=== PATIENT | male | born 1955 | race Caucasian/White ===

== ENCOUNTER 2016-10-09 10:50 | Emergency (ER) | payer MEDICARE ==
[~2016-10-09] VITALS: Ht 185.4 cm; Wt 75.0 kg
[2016-10-09 10:52] VITALS: BP 177/81; PULSE 88; RESP 24; TEMP 97.7; O2SAT 100
[2016-10-09] MEDS ORDERED: SERO200T PO (11:08)
[2016-10-09] MEDS ORDERED: TRAZ300T2 PO (11:08)
--- NOTE | 2016-10-09 11:29 | PD ---
HPI Chief Complaint: Medication Refill Request Time Seen by Provider: 11:24 Travel History International Travel<30 days: No Contact w/Intl Traveler<30days: No Traveled to known affect area: No History of Present Illness HPI 61-year-old male presents to the emergency department requesting refill on Depakote for his bipolar disorder. He has not taken it for the last 4 days. Reports being discharged last Sunday from an inpatient psychiatric facility in [place] and traveled down here on to the due to the area. He has been without medications and needs a refill. Denies suicidal or homicidal ideations. Denies visual or auditory hallucinations. Denies IV drug use. Is requesting to be admitted into a psychiatric facility to help him because he is feeling depressed and has decreased appetite and does not want to eat. He has no emergent medical complaints at this time. He denies fever, chills, nausea, vomiting. Denies chest pain, shortness of breath, abdominal pain, change in urine or stool. Denies other significant past medical history. Allergies to codeine and Mellaril. No other modifying factors or associated signs and symptoms. History Past Medical Histgory Tetanus Vaccination: < 5 Years Social History Alcohol Use: No Tobacco Use: Yes Allergies-Medications (Allergen,Severity, Reaction): Coded Allergies: Codeine (Verified Allergy, Severe, Nausea/Vomiting, 10/09/16) Mellaril (Verified Allergy, Severe, Nausea/Vomiting, 10/09/16) Reported Meds & Prescriptions Reported Meds & Active Scripts Active Reported Seroquel (Quetiapine Fumarate) 200 Mg Tab 200 Mg PO HS Trazodone (Trazodone HCl) 300 Mg Tab 300 Mg PO HS Review of Systems Except as stated in HPI: all other systems reviewed are Neg Physical Exam Narrative GENERAL: Well-nourished, well-developed male patient, in no acute distress; disheveled SKIN: Warm and dry. HEAD: Atraumatic. Normocephalic. EYES: Pupils equal and round. ENT: Mucosa pink and moist. NECK: Supple. Trachea midline. CARDIOVASCULAR: Regular rate and rhythm. No murmur appreciated. RESPIRATORY: No accessory muscle use. Clear to auscultation. Breath sounds equal bilaterally. GASTROINTESTINAL: Abdomen soft, non-tender, nondistended. Hepatic and splenic margins not palpable. Bowel sounds are active 4 quadrants. MUSCULOSKELETAL: No obvious deformities. No clubbing. No cyanosis. No edema. NEUROLOGICAL: Awake and alert. Oriented 3. No obvious cranial nerve deficits. Motor grossly within normal limits. Normal speech. Moves all extremities. 5/5 strength to all extremities. PSYCHIATRIC: No delusional thought processes. No hallucinations. Data Data Last Documented VS Vital Signs Date Time Temp Pulse Resp B/P Pulse Ox O2 Delivery O2 Flow Rate FiO2 10/09/16 10:52 97.7 88 24 177/81 100 Room Air MDM Medical Screen Exam Complete: Yes Emergency Medical Condition: No Differential Diagnosis Medication refill, medical clearance, psych evaluation Narrative Course 61-year-old male requesting medication refill on Depakote for bipolar disorder. Patient denies suicidal or homicidal ideations. Community resources provided for outpatient follow-up. Vital signs are stable and the patient is stable for outpatient follow-up and treatment. The patient has no urgent or emergent medical complaints. There is no emergent or urgent medical need at this time. I instructed the patient to follow up with their primary care provider. A medical screening exam was performed: At the time of evaluation the presenting medical condition was determined not to be of an emergent nature. The patient was given the option of receiving additional care, but declined. Patient was given options for additional community resources from which to obtain care. The Patient Has Been advised to seek medical attention for their presenting complaint. The patient has been advised to return to the ER at any time if an emergent condition develops. Primary Impression: Encounter for medical screening examination Condition: Stable Elinor Rea Oct 09, 2016 11:29
== END 2016-10-09 11:44 | disposition left against medical advice (07) ==
LOC: NEPB 10:50
DX: F31.9 Bipolar disorder, unspecified (principal); F32.9 Major depressive disorder, single episode, unspecified; Z72.0 Tobacco use
CPT/HCPCS: 99281

== ENCOUNTER 2016-10-22 18:57 | Emergency (ER) | payer MEDICARE ==
[~2016-10-22] VITALS: Ht 185.4 cm; Wt 72.5 kg
[~2016-10-22 18:57] MED LIST: SERO200T PO; TRAZ300T2 PO
[2016-10-22 19:30] VITALS: BP 142/72; PULSE 54; RESP 16; TEMP 97.9; O2SAT 98
[2016-10-22] MEDS ORDERED: SODIUM CHLOR 0.9% 1000 ML INJ 1,000 ML IV SCH (19:39)
[2016-10-22] MEDS ORDERED: DIVA250T PO (19:40)
[2016-10-22] MEDS ORDERED: AMLO2.5T PO (19:40)
[2016-10-22] MEDS ORDERED: POTA10CA PO (19:40)
[2016-10-22] MEDS ORDERED: CHLO25TA2 PO (19:40)
[2016-10-22] MEDS ORDERED: ZOFR4TAB3 SL (19:40)
[2016-10-22] MEDS ORDERED: VENL75CA44 PO (19:40)
[2016-10-22] MEDS ORDERED: ONDANSETRON HCL 4 MG/2 ML VIAL IV PUSH ONE (19:45)
[2016-10-22 19:59] LABS: AUTOMATED NEUTROPHIL # 6.1 TH/MM3 (1.8-7.7); BASOPHIL # 0.1 TH/MM3 (0-0.2); BASOPHIL % 0.8 % (0.0-2.0); EOSINOPHIL # 0.1 TH/MM3 (0-0.4); EOSINOPHIL % 1.1 % (0.0-4.0); HEMATOCRIT 43.5 % (39.0-51.0); HEMO FLAGS DIFF FINAL; LYMPH % 28.5 % (9.0-44.0); LYMPHOCYTE # 2.8 TH/MM3 (1.0-4.8); MEAN CELL VOLUME 81.6 FL (80.0-100.0); MEAN CORPUSCULAR HEMOGLOBIN 27.6 PG (27.0-34.0); MEAN CORPUSCULAR HGB CONC 33.8 % (32.0-36.0); MONO % 6.8 % (0.0-8.0); NEUT % 62.8 % (16.0-70.0); PLATELET COUNT 197 TH/MM3 (150-450); RED BLOOD COUNT 5.34 MIL/MM3 (4.50-5.90); RED CELL DISTRIBUTION WIDTH 13.7 % (11.6-17.2); WHITE BLOOD COUNT 9.7 TH/MM3 (4.0-11.0)
[2016-10-22 20:11] LABS: APTT (PATIENT) 25.9 SEC (24.3-30.1)
--- NOTE | 2016-10-22 20:16 | PD ---
HPI Chief Complaint: GI Complaint Time Seen by Provider: 20:11 Travel History International Travel<30 days: No Contact w/Intl Traveler<30days: No Traveled to known affect area: No History of Present Illness HPI 61-year-old male that presents to the ED via ambulance for evaluation of nausea and vomiting. Per patient he feels weak and feels nauseous. Patient states that he was recently seen at [facility] and released today for evaluation of the same. Patient was given Zofran and a prescription for it but apparently he did not fill it. She states that he's been feeling very nauseous secondary to keep anything down. He states that he had some abdominal cramping in the beginning. He does have a history of psychiatric illness. Patient has been here once before earlier this month and per the previous provider patient came here for evaluation of psychiatric evaluation as well as medication refill and admission to psychiatric facility. Patient does have a history of psychiatric illness including bipolar disorder and takes Depakote. Per patient he recently put back on medications for this. He denies any chest pain or shortness of breath. He states that she's been at that hospital multiple times. Unclear as to the reason why she was sent here but per patient he was told by a "social services director "at the hospital but he needed to come here. He has an allergy to codeine and Mellaril. PFSH Past Medical History Bipolar Disorder: Yes Diminished Hearing: No Past Surgical History Surgical History: No Previous Surgery Social History Alcohol Use: No Tobacco Use: No Substance Use: No Allergies-Medications (Allergen,Severity, Reaction): Coded Allergies: Codeine (Verified Allergy, Severe, Nausea/Vomiting, 10/22/16) Mellaril (Verified Allergy, Severe, Nausea/Vomiting, 10/22/16) Reported Meds & Prescriptions Reported Meds & Active Scripts Active Phenergan (Promethazine HCl) 25 Mg Tab 25 Mg PO Q6H PRN Reported Chlorthalidone 25 Mg Tab 25 Mg PO DAILY Venlafaxine ER 24 HR (Venlafaxine HCl) 75 Mg Cap 75 Mg PO DAILY Amlodipine (Amlodipine Besylate) 2.5 Mg Tab 2.5 Mg PO DAILY Potassium Chloride ER (Potassium Chloride) 10 Meq Cap 10 Meq PO DAILY Zofran Odt (Ondansetron Odt) 4 Mg Tab 4 Mg SL Q6HR PRN Divalproex DR (Divalproex Sodium) 250 Mg Tabdr 500 Mg PO HS Seroquel (Quetiapine Fumarate) 200 Mg Tab 200 Mg PO HS Trazodone (Trazodone HCl) 300 Mg Tab 300 Mg PO HS Review of Systems Except as stated in HPI: all other systems reviewed are Neg Physical Exam Narrative GENERAL: Very anorexic SKIN: Warm and dry. HEAD: Atraumatic. Normocephalic. EYES: Pupils equal and round 4 mm reactive to light and accommodation. No scleral icterus. No injection or drainage. ENT: No nasal bleeding or discharge. Mucous membranes pink and moist. Tongue is midline. no Uvula deviation. NECK: Trachea midline. No JVD. CARDIOVASCULAR: Regular rate and rhythm. No murmurs, S3, S4. RESPIRATORY: No accessory muscle use. Clear to auscultation. Breath sounds equal bilaterally. GASTROINTESTINAL: Abdomen soft, non-tender, nondistended. Hepatic and splenic margins not palpable. MUSCULOSKELETAL: Extremities without clubbing, cyanosis, or edema. No obvious deformities. Full range of motion of the upper and lower extremities bilaterally. 2+ pulses bilaterally. NEUROLOGICAL: Awake and alert. No obvious cranial nerve deficits. Motor grossly within normal limits. Five out of 5 muscle strength in the arms and legs. Normal speech. PSYCHIATRIC: Appropriate mood and affect; insight and judgment normal. Data Data Last Documented VS Vital Signs Date Time Temp Pulse Resp B/P Pulse Ox O2 Delivery O2 Flow Rate FiO2 10/22/16 19:30 97.9 54 16 142/72 98 Room Air Orders Electrocardiogram (10/22/16 19:39) Complete Blood Count With Diff (10/22/16 19:39) Comprehensive Metabolic Panel (10/22/16 19:39) Troponin I (10/22/16 19:39) Prothrombin Time / Inr (Pt) (10/22/16 19:39) Act Partial Throm Time (Ptt) (10/22/16 19:39) Lipase (10/22/16 19:39) Urinalysis - C+S If Indicated (10/22/16 19:39) Alcohol (Ethanol) (10/22/16 19:39) Thyroid Stimulating Hormone (10/22/16 19:39) Chest, Single Ap (10/22/16 19:39) Iv Access Insert/Monitor (10/22/16 19:39) Ecg Monitoring (10/22/16 19:39) Oximetry (10/22/16 19:39) Ondansetron Inj (Zofran Inj) (10/22/16 19:45) Sodium Chlor 0.9% 1000 Ml Inj (Ns 1000 M (10/22/16 19:39) Valproic Acid (Depakene) (10/22/16 19:41) Promethazine Inj (Phenergan Inj) (10/22/16 21:00) Labs Laboratory Tests Test 10/22/16 19:45 White Blood Count 9.7 TH/MM3 Red Blood Count 5.34 MIL/MM3 Hemoglobin 14.7 GM/DL Hematocrit 43.5 % Mean Corpuscular Volume 81.6 FL Mean Corpuscular Hemoglobin 27.6 PG Mean Corpuscular Hemoglobin 33.8 % Concent Red Cell Distribution Width 13.7 % Platelet Count 197 TH/MM3 Mean Platelet Volume 9.1 FL Neutrophils (%) (Auto) 62.8 % Lymphocytes (%) (Auto) 28.5 % Monocytes (%) (Auto) 6.8 % Eosinophils (%) (Auto) 1.1 % Basophils (%) (Auto) 0.8 % Neutrophils # (Auto) 6.1 TH/MM3 Lymphocytes # (Auto) 2.8 TH/MM3 Monocytes # (Auto) 0.7 TH/MM3 Eosinophils # (Auto) 0.1 TH/MM3 Basophils # (Auto) 0.1 TH/MM3 CBC Comment DIFF FINAL Differential Comment Prothrombin Time 11.0 SEC Prothromb Time International 1.0 RATIO Ratio Activated Partial 25.9 SEC Thromboplast Time Sodium Level 138 MEQ/L Potassium Level 4.1 MEQ/L Chloride Level 103 MEQ/L Carbon Dioxide Level 24.0 MEQ/L Anion Gap 11 MEQ/L Blood Urea Nitrogen 17 MG/DL Creatinine 1.67 MG/DL Estimat Glomerular Filtration 42 ML/MIN Rate Random Glucose 147 MG/DL Calcium Level 9.5 MG/DL Total Bilirubin 0.5 MG/DL Aspartate Amino Transf 35 U/L (AST/SGOT) Alanine Aminotransferase 19 U/L (ALT/SGPT) Alkaline Phosphatase 76 U/L Troponin I LESS THAN 0.02 NG/ML Total Protein 7.9 GM/DL Albumin 3.9 GM/DL Lipase 133 U/L Thyroid Stimulating Hormone 0.955 uIU/ML 3rd Gen Valproic Acid (Depakene) Level 40 MCG/ML Ethyl Alcohol Level LESS THAN 3 MG/DL MDM Medical Decision Making Medical Screen Exam Complete: Yes Emergency Medical Condition: Yes Medical Record Reviewed: Yes Interpretation(s) CBC & BMP Diagram 10/22/16 19:45 LFTs were within normal limits. Lipase within normal limits. EKG showed sinus bradycardia but no sign of acute ischemia or arrhythmia. Last Impressions Chest X-Ray 10/22/161938 Signed Impressions: Service Date/Time: Saturday, October 22, 2016 20:05 - CONCLUSION: Lower total of 4 ill-defined opacities which may be calcified and have bizarre shape, to project over the right chest and to project of the left chest. Recommend performing a noncontrast CT thorax to further localize and characterize these lesions. Rudy Calderon MD Differential Diagnosis Nausea versus vomit versus acute abdomen versus obstruction versus weakness versus chronic nausea versus malingering versus medication side effect Narrative Course 61-year-old male that presents to the ED for evaluation of nausea and vomiting. Patient was properly examined and was found to have signs and symptoms of unclear etiology. Patient apparently was just released from a different hospital. Here labs and imaging will be done to any sign of acute disease. Patient says been compliant with medications but unclear as patient was just released today. Labs here and imaging were essentially unremarkable. Case was discussed in my attending Dr Fuentes was made aware of all findings and personally evaluated the patient with me and recommends discharge with follow-up outpatient for the masses in the lung and further work up for the nausea and vomit. Patient was told this. Patient was given perception for Phenergan. Patient was told that he needs follow-up outpatient. See ED for worsening symptoms. Diagnosis Primary Impression: Vomiting Qualified Code: R11.2 - Non-intractable vomiting with nausea, unspecified vomiting type Patient Instructions: General Instructions Additional Instructions: Take medication as prescribed. Follow with PCP for further evaluation of the masses in your lung. See ED for any worsening symptoms. Med/Other Pt SpecificInfo: Prescription(s) given Scripts Promethazine (Phenergan)25 Mg Tab25 Mg PO Q6H PRN (Nausea/Vomiting) #20 TAB Ref 0 Prov:Guanako Fuentes MD 10/22/16 Disposition: DISCHARGE HOME Condition: Stable Sedrick Soliman Oct 22, 2016 20:16
[2016-10-22 20:19] LABS: ANION GAP 11 MEQ/L (5-15); AST (GOT) 35 U/L (15-37); BLOOD UREA NITROGEN 17 MG/DL (7-18); CHLORIDE 103 MEQ/L (98-107); GLOMERULAR FILTRATION RATE 42 ML/MIN (>89); POTASSIUM 4.1 MEQ/L (3.5-5.1); SODIUM (NA) 138 MEQ/L (136-145)
[2016-10-22 20:30] LABS: ALKALINE PHOSPHATASE 76 U/L (45-117); ALT (GPT) 19 U/L (12-78); TOTAL BILIRUBIN ADULT 0.5 MG/DL (0.2-1.0)
--- NOTE | 2016-10-22 20:37 | RADRPT ---
EXAM DATE/TIME: 10/22/2016 20:05 [facility] COMPARISON: No previous studies available for comparison. INDICATIONS : Vomiting and chest pain MEDICAL HISTORY : None. SURGICAL HISTORY : None. ENCOUNTER: Initial ACUITY: 1 day PAIN SCORE: 5/10 LOCATION: Bilateral chest FINDINGS: There are several irregular margin faint but probably calcified nodular densities, to project over th e right chest and tube projected over the left chest studies cannot be further localized on single fr ontal view. 3 of the 4 densities are partially obscured by either snaps or leads. The largest is in the right upper chest measuring 3.1 x 2.5 cm. Both hemidiaphragms are well delineated. The heart i s normal size. The central bronchopulmonary markings are well delineated. CONCLUSION: Lower total of 4 ill-defined opacities which may be calcified and have bizarre shape, to project over the right chest and to project of the left chest. Recommend performing a noncontrast CT thorax to f urther localize and characterize these lesions. Rudy Calderon MD on October 22, 2016 at 20:34 Board Certified Radiologist. This report was verified electronically.
[2016-10-22] MEDS ORDERED: PROMETHAZINE INJ 25 MG/ML VIAL IM ONE (21:00)
--- NOTE | 2016-10-22 21:08 | PD ---
Physical Exam Narrative Patient was seen and examined with my periodicals library assistant. Data Data Last Documented VS Vital Signs Date Time Temp Pulse Resp B/P Pulse Ox O2 Delivery O2 Flow Rate FiO2 10/22/16 19:30 97.9 54 16 142/72 98 Room Air Orders Electrocardiogram (10/22/16 19:39) Complete Blood Count With Diff (10/22/16 19:39) Comprehensive Metabolic Panel (10/22/16 19:39) Troponin I (10/22/16 19:39) Prothrombin Time / Inr (Pt) (10/22/16 19:39) Act Partial Throm Time (Ptt) (10/22/16 19:39) Lipase (10/22/16 19:39) Urinalysis - C+S If Indicated (10/22/16 19:39) Alcohol (Ethanol) (10/22/16 19:39) Thyroid Stimulating Hormone (10/22/16 19:39) Chest, Single Ap (10/22/16 19:39) Iv Access Insert/Monitor (10/22/16 19:39) Ecg Monitoring (10/22/16 19:39) Oximetry (10/22/16 19:39) Ondansetron Inj (Zofran Inj) (10/22/16 19:45) Sodium Chlor 0.9% 1000 Ml Inj (Ns 1000 M (10/22/16 19:39) Valproic Acid (Depakene) (10/22/16 19:41) Ct Thorax/ Chest W Iv Contrast (10/22/16 21:00) Promethazine Inj (Phenergan Inj) (10/22/16 21:00) Labs Laboratory Tests Test 10/22/16 19:45 White Blood Count 9.7 TH/MM3 Red Blood Count 5.34 MIL/MM3 Hemoglobin 14.7 GM/DL Hematocrit 43.5 % Mean Corpuscular Volume 81.6 FL Mean Corpuscular Hemoglobin 27.6 PG Mean Corpuscular Hemoglobin 33.8 % Concent Red Cell Distribution Width 13.7 % Platelet Count 197 TH/MM3 Mean Platelet Volume 9.1 FL Neutrophils (%) (Auto) 62.8 % Lymphocytes (%) (Auto) 28.5 % Monocytes (%) (Auto) 6.8 % Eosinophils (%) (Auto) 1.1 % Basophils (%) (Auto) 0.8 % Neutrophils # (Auto) 6.1 TH/MM3 Lymphocytes # (Auto) 2.8 TH/MM3 Monocytes # (Auto) 0.7 TH/MM3 Eosinophils # (Auto) 0.1 TH/MM3 Basophils # (Auto) 0.1 TH/MM3 CBC Comment DIFF FINAL Differential Comment Prothrombin Time 11.0 SEC Prothromb Time International 1.0 RATIO Ratio Activated Partial 25.9 SEC Thromboplast Time Sodium Level 138 MEQ/L Potassium Level 4.1 MEQ/L Chloride Level 103 MEQ/L Carbon Dioxide Level 24.0 MEQ/L Anion Gap 11 MEQ/L Blood Urea Nitrogen 17 MG/DL Creatinine 1.67 MG/DL Estimat Glomerular Filtration 42 ML/MIN Rate Random Glucose 147 MG/DL Calcium Level 9.5 MG/DL Total Bilirubin 0.5 MG/DL Aspartate Amino Transf 35 U/L (AST/SGOT) Alanine Aminotransferase 19 U/L (ALT/SGPT) Alkaline Phosphatase 76 U/L Troponin I LESS THAN 0.02 NG/ML Total Protein 7.9 GM/DL Albumin 3.9 GM/DL Lipase 133 U/L Thyroid Stimulating Hormone 0.955 uIU/ML 3rd Gen Valproic Acid (Depakene) Level 40 MCG/ML Ethyl Alcohol Level LESS THAN 3 MG/DL MDM Supervised Visit with GUSTAVO: Yes Guankao Fuentes MD Oct 22, 2016 21:08
[2016-10-22] MEDS ORDERED: PROM25TA5 PO (21:15)
[2016-10-22 21:47] VITALS: BP 140/71
--- NOTE | 2016-10-23 06:13 | EKG ---
Date Performed: 10/22/2016 Time Performed: 19:55:35 PTAGE: 61 years EKG: SINUS BRADYCARDIA RIGHT BUNDLE BRANCH BLOCK LEFT ANTERIOR FASCICULAR BLOCK POSSIBLE LEFT VE NTRICULAR HYPERTROPHY ABNORMAL ECG NO PREVIOUS TRACING DOCTOR: Neville Arreola Interpretating Date/Time 10/23/2016 06:11:49
== END 2016-10-22 21:58 | disposition home or self-care (01) ==
LOC: NEPC 18:57
DX: R11.10 Vomiting, unspecified (principal); F31.9 Bipolar disorder, unspecified; R00.1 Bradycardia, unspecified; I45.10 Unspecified right bundle-branch block; I44.4 Left anterior fascicular block; R94.31 Abnormal electrocardiogram [ECG] [EKG]
CPT/HCPCS: 71010; 80053; 80164; 80320; 83690; 84443; 84484; 85025; 85610; 85730; 93005; 96361; 96372; 96374; 99285; J2405; J2550; J7030

== ENCOUNTER 2016-10-22 22:33 | Observation (INO) | payer MEDICARE ==
[~2016-10-22] VITALS: Ht 185.4 cm; Wt 70.5 kg
[~2016-10-22 22:33] MED LIST changes: +AMLO2.5T PO; +CHLO25TA2 PO; +DIVA250T PO; +POTA10CA PO; +PROM25TA5 PO; +VENL75CA44 PO; +ZOFR4TAB3 SL
[2016-10-22 22:35] VITALS: BP 130/69; PULSE 66; RESP 16; TEMP 98; O2SAT 100
--- NOTE | 2016-10-22 23:37 | RADRPT ---
EXAM DATE/TIME: 10/22/2016 23:12 [facility] COMPARISON: CHEST SINGLE AP, October 22, 2016, 20:05. INDICATIONS : Abnormal chest x-ray, possible mass. RADIATION DOSE: 3.76 CTDIvol (mGy) MEDICAL HISTORY : None SURGICAL HISTORY : None. ENCOUNTER: Initial ACUITY: 1 day PAIN SCALE: 0/10 LOCATION: chest TECHNIQUE: Volumetric scanning of the chest was performed. Using automated exposure control and adjustment of t he mA and/or kV according to patient size, radiation dose was kept as low as reasonably achievable to obtain optimal diagnostic quality images. FINDINGS: Extensive calcified pleural plaques are seen on both sides, including the diaphragmatic pleura. Featu res are typical of asbestos related pleural disease. There is mild tree in bud type infiltrate latera lly in the right upper lobe, series 3 image 23. No large or dense consolidation. No pleural effusion. No pneumothorax. Heart size within normal limits. No mediastinal, hilar or axillary lymphadenopathy demonstrated. The upper abdomen is only partly included on this study. Multiple gallstones are seen that measure up to 9 mm in size. CONCLUSION: 1. The opacities seen on x-ray are related to bilateral pleural plaque typical of chronic asbestos re lated pleural disease. 2. Mild atypical appearing infiltrate in the right upper lobe. No other evidence of acute cardiopulmo nary disease. López Hayes MD on October 22, 2016 at 23:32 Board Certified Radiologist. This report was verified electronically.
[2016-10-23] MEDS ORDERED: SODIUM CHLOR 0.9% 1000 ML INJ 1,000 ML IV ONE (00:15)
[2016-10-23] MEDS ORDERED: ONDANSETRON HCL 4 MG/2 ML VIAL IV ONE (00:15)
[2016-10-23] MEDS ORDERED: PANTOPRAZOLE SODIUM 40 MG VIAL IV PUSH ONE (00:45)
--- NOTE | 2016-10-23 00:48 | PD ---
HPI Chief Complaint: GI Complaint Time Seen by Provider: 22:58 Travel History International Travel<30 days: No Contact w/Intl Traveler<30days: No Traveled to known affect area: No History of Present Illness HPI The patient is a 61 year old male who presents to the [facility] emergency department with a history of nausea and intermittent vomiting that began in July 2016. He reports that he arrived from [place] in September. He reports that he is trying to get back to [place] where he normally resides. He reports that he was admitted in [place] for initial evaluation and had a CT scan of the abdomen and pelvis that was reportedly unremarkable. He denies seeing a GI doctor or having any other testing. He reports that in September he was admitted to [facility] in [place]. He reports that he was diagnosed with pneumonia and treated for this, however he had no symptoms of pneumonia. The patient reports that he's had a 30 pound weight loss since July. He reports that he has not been able to eat anything since yesterday. He reports that he has acid reflux symptoms, however no dysphagia. He denies ever having endoscopy that he can recall. He denies ever having a gastric emptying study that he can recall. He reports that he was recently diagnosed with diabetes. He has not started on the medication for it. The patient was seen earlier today in the emergency department and treated with Phenergan and Zofran, however again he had vomiting and decided to come back for evaluation and treatment. The patient reports that he has irritable bowel syndrome with constipation alternating with diarrhea. He reports that he had diarrhea times one earlier today. He denies any blood in his stool or black or tarry stools. The patient denies any recent fevers, cough, congestion, neck pain, chest pain, shortness of breath, urinary symptoms, or neurologic symptoms. [facility] Past Medical History Narrative Medical The patient's past medical history is significant for bipolar disorder, irritable bowel syndrome, diabetes mellitus. Bipolar Disorder: Yes Diminished Hearing: No Past Surgical History Narrative Surgical The patient's past surgical history is significant for Achilles tendon surgery, tonsillectomy. Social History Alcohol Use: No Tobacco Use: No Substance Use: No Allergies-Medications (Allergen,Severity, Reaction): Coded Allergies: Codeine (Verified Allergy, Severe, Nausea/Vomiting, 10/22/16) Mellaril (Verified Allergy, Severe, Nausea/Vomiting, 10/22/16) Reported Meds & Prescriptions Reported Meds & Active Scripts Active Reported Chlorthalidone 25 Mg Tab 25 Mg PO DAILY Venlafaxine ER 24 HR (Venlafaxine HCl) 75 Mg Cap 75 Mg PO DAILY Amlodipine (Amlodipine Besylate) 2.5 Mg Tab 2.5 Mg PO DAILY Potassium Chloride ER (Potassium Chloride) 10 Meq Cap 10 Meq PO DAILY Zofran Odt (Ondansetron Odt) 4 Mg Tab 4 Mg SL Q6HR PRN Divalproex DR (Divalproex Sodium) 250 Mg Tabdr 500 Mg PO HS Seroquel (Quetiapine Fumarate) 200 Mg Tab 200 Mg PO HS Trazodone (Trazodone HCl) 300 Mg Tab 300 Mg PO HS Review of Systems Except as stated in HPI: all other systems reviewed are Neg General / Constitutional: No: Fever Eyes: No: Visual changes HENT: No: Headaches Cardiovascular: No: Chest Pain or Discomfort Respiratory: No: Shortness of Breath Gastrointestinal: Positive: Nausea, Vomiting, Diarrhea, Abdominal Pain ( midepigastric), Loss of Appetite Genitourinary: No: Dysuria Musculoskeletal: No: Pain Skin: No Rash Neurologic: No: Weakness Psychiatric: No: Depression Endocrine: No: Polydipsia Hematologic/Lymphatic: No: Easy Bruising Physical Exam Narrative General: The patient is a well-developed, thin appearing male, in no acute distress. Head and Neck exam: Head is normocephalic atraumatic. Eyes: Pupils are equal round and reactive to light. Nose: Midline septum with pink mucous membranes Mouth: Dentition unremarkable. Tacky mucus membranes. Posterior oropharynx is not erythematous. No tonsillar hypertrophy. Uvula midline. Airway patent. Neck: No palpable lymphadenopathy. No nuchal rigidity. No thyromegaly. Cardiovascular: Regular rate and rhythm without murmurs, gallops, or rubs. Lungs: Clear to auscultation bilaterally. No wheezes, rhonchi, or rales. Abdomen: Soft, with midepigastric abdominal discomfort on palpation with frequent belching. No tenderness on palpation of the other 4 quadrants of the abdomen. No tenderness on palpation of McBurney's point. No guarding, rebound, or rigidity. Normal bowel sounds are audible. Extremities: No clubbing, cyanosis, or edema. 2+ pulses in all 4 extremities. No calf tenderness on palpation. Back: No spinous process tenderness to palpation. No costovertebral angle tenderness to palpation. Neurologic Exam: Grossly nonfocal. Skin Exam: No rash noted. Intact skin that is warm and dry. Poor skin turgor. Data Data Last Documented VS Vital Signs Date Time Temp Pulse Resp B/P Pulse Ox O2 Delivery O2 Flow Rate FiO2 10/22/16 22:35 98.0 66 16 130/[address] Thorax/ Chest Wo Iv Contras (10/22/16 23:00) Iv Access Insert/Monitor (10/23/16 00:14) Ecg Monitoring (10/23/16 00:14) Oximetry (10/23/16 00:14) Sodium Chlor 0.9% 1000 Ml Inj (Ns 1000 M (10/23/16 00:15) Ondansetron Inj (Zofran Inj) (10/23/16 00:15) Pantoprazole Inj (Protonix Inj) (10/23/16 00:45) Admit Order (Ed Use Only) (10/23/16 01:22) MDM Medical Decision Making Medical Screen Exam Complete: Yes Emergency Medical Condition: Yes Medical Record Reviewed: Yes Interpretation(s) Last Impressions Chest CT 10/22/16 2300 Signed Impressions: Service Date/Time: Saturday, October 22, 2016 23:12 - CONCLUSION: 1. 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 2. Mild atypical appearing infiltrate in the right upper lobe. No other evidence of acute cardiopulmonary disease. López Hayes MD Differential Diagnosis Gastroparesis, versus gastroenteritis, versus loss of appetite due to occult cancer Narrative Course During the course of the patients emergency department visit, the patients history, examination, and differential diagnosis were reviewed with the patient. The patient had IV access obtained and blood work sent for analysis. The patient's electronic medical record was reviewed. The patient was placed on a athletic monitor with oximetry and blood pressure monitoring. The patient had an EKG done on arrival. The patient's EKG shows a sinus bradycardia rate of 54, right bundle branch block, left anterior fascicular block, no other acute abnormality. The patient was just recently seen in the emergency department and had laboratory studies done, his creatinine was noted to be elevated at 1.67, glucose 147, troponin I was less than 0.02, TSH within normal limits, lipase 133. Valproic acid level was 40, alcohol less than 3, PT PTT unremarkable. A chest x-ray was done earlier today that revealed 4 ill-defined opacities which may be calcified and have bizarre shape. They projected over the right chest and they also projected over the left chest. The reading radiologist recommended performing a noncontrast CT to further evaluate. A CT was not done earlier. A CT was done as part of my evaluation. CT scan of the thorax reveals opacity seen on x-ray are related to bilateral pleural plaquing typical of chronic asbestosis related pleural disease. Mild atypical appearing infiltrate in the right upper lobe, no other evidence of acute cardiopulmonary disease. The patient was provided normal saline IV fluids, Zofran 4 mg IV for nausea, Protonix 40 mg IV. The patient will be admitted to the hospital for continued evaluation and treatment of intractable nausea and vomiting. The patients results were discussed with the patient, including the plan of care. I explained that further testing and/ or monitoring is indicated based on the patients history, examination, and/ or laboratory findings. Therefore, I recommended admission for additional evaluation. The patient expressed understanding and was agreeable with this plan. The patient was admitted to the hospital in stable condition and sent to a bed under the care of the [facility]. Physician Communication Physician Communication The patient's case was discussed with Dr. Amin who did agree to the patient for further evaluation and treatment at this time. Diagnosis Primary Impression: Intractable vomiting with nausea Qualified Code: R11.2 - Intractable vomiting with nausea, unspecified vomiting type Admitting Information Admitting Physician Requests: Brisa Tellez MD Oct 23, 2016 00:48
[2016-10-23] MEDS ORDERED: ONDANSETRON HCL 4 MG/2 ML VIAL IVP PRN (01:30)
[2016-10-23] MEDS ORDERED: ACETAMINOPHEN 325 MG TAB PO PRN (01:30)
[2016-10-23] MEDS ORDERED: BISACODYL 10 MG SUPP PR PRN (01:30)
[2016-10-23] MEDS ORDERED: SODIUM CHLORIDE 0.9% FLUSH 5 ML FLUSH FLUSH PRN (01:30)
[2016-10-23] MEDS ORDERED: MORPHINE SULFATE 4 MG/ML INJ IV PRN (01:30)
[2016-10-23] MEDS: SODIUM CHLOR 0.9% 1000 ML INJ 1,000 ML IV SCH ×3 (01:56→21:01)
[2016-10-23] MEDS ORDERED: DEXTROSE 50% IN WATER 50 ML VIAL(D50) IV PUSH PRN (02:30)
[2016-10-23] MEDS ORDERED: GLUCAGON 1 MG/ML VIAL OTHER PRN (02:30)
--- NOTE | 2016-10-23 02:34 | HHI.HP ---
[facility] Service [facility] Primary Care Physician Non-Staff Admission Diagnosis Intractable Nausea/ Vomiting Diagnoses: (1) Intractable vomiting with nausea Diagnosis: Principal (2) Renal insufficiency Diagnosis: Principal (3) DM (diabetes mellitus) Diagnosis: Principal (4) Schizophrenia Diagnosis: Principal Travel History International Travel<30 Days: No Contact w/Intl Traveler <30 Da: No Traveled to Known Affected Are: No History of Present Illness This is a 61-year-old male with a PMH of Bipolar Disorder, IBS and DM who presents to the ER with complaints of nausea and vomiting. States symptoms have been ongoing since July, admitted to Hospital in [place] where he was living at the time and had negative work up per his report. States symptoms have been persistent w/ associated decreased PO intake and weight loss of approx 30lbs. Denies fever, chills or diarrhea. Seen in ER on 10/10/16 for refill of his Depakote after being released from In Psych facility in [place] , off meds x4 days while traveling to [facility]. Presented to ER again on at 19:20 for nausea and vomiting, had been released from [facility] earlier that day after presenting for same complaints. Work up essentially negative except creatinine 1.67, no previous labs for comparison. Was d/c'd w/ prescription for Phenergan. Returned to ER 10/22/16 at 22:41 for ongoing nausea/ vomiting. S/p Zofran and Morphine w/ minimal improvement. CXR w/ abnormal findings, CT Chest bilateral pleural plaque typical of chronic asbestos related disease and mild atypical infiltrate in RUL. Review of Systems Other ROS: 14 point review of systems otherwise negative. Past Family Social History Past Medical History PMH: Bipolar Disorder, IBS and DM Past Surgical History PAST SURGICAL HISTORY: Achilles Tendon Surgery, Tonsillectomy Allergies: Coded Allergies: Codeine (Verified Allergy, Severe, Nausea/Vomiting, 10/22/16) Mellaril (Verified Allergy, Severe, Nausea/Vomiting, 10/22/16) Family History PAST FAMILY HISTORY: Reviewed. No h/o DM or CAD Social History PAST SOCIAL HISTORY: Negative for alcohol, tobacco or drugs. Physical Exam Vital Signs Vital Signs Date Time Temp Pulse Resp B/P Pulse Ox O2 Delivery O2 Flow Rate FiO2 10/22/16 22:35 98.0 66 16 130/69 100 Physical Exam PE: GENERAL: Middle-aged male in no acute distress. HEENT: PERRLA, EOMI. No scleral icterus or conjunctival pallor. No lid lag or facial droop. CARDIOVASCULAR: Regular rate and rhythm. No obvious murmurs to auscultation. No chest tenderness to palpation. RESPIRATORY: No obvious rhonchi or wheezing. Clear to auscultation. Breath sounds equal bilaterally. GASTROINTESTINAL: Abdomen soft, mild epigastric tenderness to palpation, nondistended. BS normal. MUSCULOSKELETAL: Extremities without clubbing, cyanosis, or edema. No obvious deformities. NEUROLOGICAL: Awake, alert and oriented x4. No focal neurologic deficits. Moving both upper and lower extremities spontaneously. Assessment and Plan Problem List: (1) Intractable vomiting with nausea ICD Code: R11.2 Status: Acute (2) Renal insufficiency ICD Code: N28.9 Status: Acute (3) DM (diabetes mellitus) ICD Code: E11.9 Status: Acute (4) Schizophrenia ICD Code: F20.9 Status: Acute Assessment and Plan A/P: 1. Intractable Nausea/Vomiting: reports ongoing symptoms since July 2016 w / decreased PO intake and associated 30lb weight loss. Previous work up negative per his report. No c/o abdominal pain or diarrhea. Afebrile, no leukocytosis. Multiple ER presentations for same, unclear if secondary motivation as pt is Homeless. S/p Morphine/Zofran in ER w/ improvement. Continue w/ analgesics/antiemetics. Protonix IV. GI eval if symptoms persistent. 2. Renal Insufficiency: Creatinine 1.67, no previous labs for comparison. Check U/a, IVF for hydration, repeat labs in am. 3. DM: Reportedly diagnosed w/ DM in [place], ? contributing to symptoms, not on medications. Check Hgb A1c, Sliding Scale w/ Accu-Cheks. 4. Bipolar Disorder: Recently d/c'd from Inpatient Psych Facility in [place] prior to coming to [facility]. Will resume home Depakote, Seroquel and Trazodone. 5. DVT Prophylaxis: SCD/Teds. 6. Social work for d/c planning as needed. 7. Case discussed w/ ER physician at length. Problem Qualifiers (1) Intractable vomiting with nausea: Qualified Code: R11.2 - Intractable vomiting with nausea, unspecified vomiting type Allison Amin MD Oct 23, 2016 02:33
[2016-10-23 04:00] VITALS: BP 130/74; PULSE 77; RESP 21; TEMP 98; O2SAT 98
[2016-10-23] MEDS: PROMETHAZINE INJ 25 MG/ML VIAL IM PRN ×2 (05:38→14:18)
[2016-10-23] MEDS: INSULIN ASPART SUPPLEMENTAL SCALE SQ SCH ×4 (07:00→20:51)
[2016-10-23 07:28] VITALS: BP 135/63; PULSE 54; RESP 20; TEMP 97.6; O2SAT 98
[2016-10-23] MEDS: VENLAFAXINE HCL XR 75 MG CAP PO SCH (08:52)
[2016-10-23] MEDS: amLODIPine BESYLATE 5 MG TAB PO SCH (08:52)
[2016-10-23] MEDS: PANTOPRAZOLE SODIUM 40 MG VIAL IV PUSH SCH ×2 (08:52→21:01)
[2016-10-23] MEDS: SODIUM CHLORIDE 0.9% FLUSH 5 ML FLUSH FLUSH SCH ×2 (08:53→21:01)
--- NOTE | 2016-10-23 10:08 | HHI.PR ---
Subjective Remarks Follow up for nausea/vomiting. The patient reports trying to eat a biscuit today but he became nauseous. One episode of vomiting last night, none since. No abdominal pain. No fevers/chills. Yesterday he had some diarrhea x2. Objective Vitals Vital Signs Date Time Temp Pulse Resp B/P Pulse Ox O2 Delivery O2 Flow Rate FiO2 10/23/16 07:28 97.6 54 20 135/63 98 10/23/16 04:00 98.0 77 21 130/74 98 10/22/16 22:35 98.0 66 16 130/69 100 Imaging Last Impressions Chest CT 10/22/16 2300 Signed Impressions: Service Date/Time: Saturday, October 22, 2016 23:12 - CONCLUSION: 1. 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 2. Mild atypical appearing infiltrate in the right upper lobe. No other evidence of acute cardiopulmonary disease. López Hayes MD Objective Remarks GENERAL: Thin male patient in NAD. SKIN: Warm and dry. No rash. HEAD: Normocephalic. Atraumatic. ENT: No nasal bleeding or discharge. Mucous membranes pink and moist. NECK: Supple. Trachea midline. CARDIOVASCULAR: Regular rate and rhythm. S1, S2 noted. No murmur appreciated. RESPIRATORY: No accessory muscle use. Clear to auscultation. Breath sounds equal bilaterally. GASTROINTESTINAL: Abdomen soft, non-tender, nondistended. Normoactive bowel sounds x4. MUSCULOSKELETAL: No obvious deformities. Extremities without clubbing, cyanosis , or edema. NEUROLOGICAL: Awake and alert. No obvious cranial nerve deficits. Motor grossly within normal limits. Normal speech. PSYCHIATRIC: Appropriate mood and affect; insight and judgment normal. Medications and IVs Current Medications Medications (Trade) Dose Ordered Sig/Al Route Start Time Stop Time Status Last Admin (NS 1000 ml Inj) 1,000 ml @ 100 mls/hr Q10H IV 10/23/16 01:28 10/23/16 01:56 (NS Flush) 2 ml UNSCH PRN FLUSH 10/23/16 01:30 (NS Flush) 2 ml BID FLUSH 10/23/16 09:00 (Zofran Inj) 4 mg Q6H PRN IVP 10/23/16 01:30 (Dulcolax Supp) 10 mg DAILY PRN [place] 10/23/16 01:30 (Tylenol) 650 mg Q6H PRN PO 10/23/16 01:30 (Morphine Inj) 2 mg Q3H PRN IV 10/23/16 01:30 (Phenergan Inj) 12.5 mg Q4H PRN IM 10/23/16 01:30 10/23/16 05:38 (Protonix Inj) 40 mg Q12H IV PUSH 10/23/16 09:00 10/23/16 08:52 (Norvasc) 2.5 mg DAILY PO 10/23/16 09:00 10/23/16 08:52 (Depakote Dr) 500 mg HS PO 10/23/16 21:00 (SEROquel) 200 mg HS PO 10/23/16 21:00 (Desyrel) 300 mg HS PO 10/23/16 21:00 (Effexor Xr) 75 mg DAILY PO 10/23/16 09:00 10/23/16 08:52 (D50w (Vial) Inj) 25 ml UNSCH PRN IV PUSH 10/23/16 02:30 (Glucagon Inj) 1 mg UNSCH PRN OTHER 10/23/16 02:30 (Colyte Liq) 4,000 ml ONCE ONCE PO 10/23/16 16:00 10/23/16 16:01 Urinary Catheter: No Vascular Central Line Catheter: No A/P Problem List: (1) Intractable vomiting with nausea ICD Code: R11.2 Status: Acute (2) Renal insufficiency ICD Code: N28.9 Status: Acute (3) DM (diabetes mellitus) ICD Code: E11.9 Status: Acute (4) Schizophrenia ICD Code: F20.9 Status: Acute Assessment and Plan 61-year-old male with a PMH of Bipolar Disorder, IBS and DM who presents to the ER with complaints of nausea, vomiting, weight loss 30+ lbs. Intractable Nausea/Vomiting: reports ongoing symptoms since July 2016 w/ decreased PO intake and associated 30lb weight loss. Previous work up negative per his report. No c/o abdominal pain or diarrhea. Afebrile, no leukocytosis. Multiple ER presentations for same, unclear if secondary motivation as pt is Homeless. S/p Morphine/Zofran in ER w/ improvement. Continue w/ analgesics/ antiemetics. Protonix IV. GI consulted. Renal Insufficiency: Creatinine 1.67, no previous labs for comparison. Check U /a, IVF for hydration, repeat labs in am. DM: Reportedly diagnosed w/ DM in [place], ? contributing to symptoms, not on medications. Check Hgb A1c, Sliding Scale w/ Accu-Cheks. Bipolar Disorder: Recently d/c'd from Inpatient Psych Facility in [place] prior to coming to [facility]. Resume home Depakote, Seroquel and Trazodone. Questionable malingering?, Consult Psychiatry. DVT Prophylaxis: SCD/Teds. Written by Keyla Rivas, acting as scribe for Dr. Pathak on 10/23/16 at 10:06. The documentation accurately reflects the work performed [id number] by me Dr. Pathak on 10/23/16 at 10:06. Problem Qualifiers (1) Intractable vomiting with nausea: Qualified Code: R11.2 - Intractable vomiting with nausea, unspecified vomiting type Keyla Rivas PA-C Oct 23, 2016 10:08 Radha Pathak MD Oct 23, 2016 15:01
[2016-10-23 11:11] LABS: AUTOMATED NEUTROPHIL # 3.9 TH/MM3 (1.8-7.7); BASOPHIL % 0.6 % (0.0-2.0); EOSINOPHIL # 0.1 TH/MM3 (0-0.4); EOSINOPHIL % 1.4 % (0.0-4.0); HEMO FLAGS DIFF FINAL; LYMPH % 33.6 % (9.0-44.0); LYMPHOCYTE # 2.3 TH/MM3 (1.0-4.8); MEAN CELL VOLUME 81.6 FL (80.0-100.0); MEAN CORPUSCULAR HEMOGLOBIN 27.7 PG (27.0-34.0); MONO % 7.3 % (0.0-8.0); NEUT % 57.1 % (16.0-70.0); PLATELET COUNT 182 TH/MM3 (150-450); RED BLOOD COUNT 4.78 MIL/MM3 (4.50-5.90); RED CELL DISTRIBUTION WIDTH 13.7 % (11.6-17.2); WHITE BLOOD COUNT 6.9 TH/MM3 (4.0-11.0)
--- NOTE | 2016-10-23 11:13 | PD.CONS ---
HPI History of Present Illness This is a 61 year old male patient who states he has always had intermittent nausea/vomiting and GERD since he was child. He states that his symptoms went away up until about 10 years ago, when he started having symptoms more. He reports that he was diagnosed with H. Pylori about 8 years ago and reports that he was treated for 2 months with antibiotics. During this time, he lost about 100 lbs and he reports that he has not been able to gain this back since that time. He reports that he was hospitalized at a [facility] in [place] in August and has continued to lose weight- 20lbs since that time. He has intermittent nausea, vomiting, mild epigastric discomfort/burning/ cramping, and intermittent constipation and diarrhea since that time. Sometimes he can eat normally, but he does have a decreased appetite and has early satiety. He has GERD and states that recently, he has had symptoms every day and that it is much more severe if he eats fried foods. He was sent to [facility] for workup of his symptoms- where he had barium enema and was told this was normal. He reports that he did not have any further workup for this at that facility and that his last EGD/Colonoscopy was about 12 years ago and he was told that this was normal. He has taken phenergan for his nausea and zofran for his nausea. The phenergan is the only thing that seems to help. He has not been on any other medications for this. He denies any black tarry stools at this time. However, back in July, he was hospitalized at a hospital in [place] for psychiatric problems and was given a laxative and reports that when he did go, he had black stool. He has not had any further episodes. He occasionally has bright red blood on the tissue when he is constipated, but only when he strains and states that it is only a scant amount. (Daksha Kelley) PFSH Past Medical History Bipolar Disorder DM Irritable Bowel syndrome GERD Hx H. Pylori. Past Surgical History Achilles Tendon Surgery Tonsillectomy EGD/Colonoscopy (Daksha Kelley) Coded Allergies: Codeine (Verified Allergy, Severe, Nausea/Vomiting, 10/22/16) Mellaril (Verified Allergy, Severe, Nausea/Vomiting, 10/22/16) Medications Allergies Coded Allergies Type Severity Reaction Last Updated Verified Codeine Allergy Severe Nausea/Vomiting 10/22/16 Yes Mellaril Allergy Severe Nausea/Vomiting 10/22/16 Yes Active Scripts Medications Dose Route/Sig Days Date Category Chlorthalidone 25 Mg Tab 25 Mg PO DAILY 10/22/16 Reported Venlafaxine ER 24 HR (Venlafaxine HCl) 75 Mg Cap 75 Mg PO DAILY 10/22/16 Reported Amlodipine (Amlodipine Besylate) 2.5 Mg Tab 2.5 Mg PO DAILY 10/22/16 Reported Potassium Chloride ER (Potassium Chloride) 10 Meq Cap 10 Meq PO DAILY 10/22/16 Reported Zofran Odt (Ondansetron Odt) 4 Mg Tab 4 Mg SL Q6HR PRN 10/22/[address] (Divalproex Sodium) 250 Mg Tabdr 500 Mg PO HS 10/22/16 Reported Seroquel (Quetiapine Fumarate) 200 Mg Tab 200 Mg PO HS 10/09/16 Reported Trazodone (Trazodone HCl) 300 Mg Tab 300 Mg PO HS 10/09/16 Reported Family History No family hx of esophageal, gastric, or colorectal cancer. Father had angina, asbestos related lung disease, asthma Mother from natural causes Social History Smoked in past, quit in 1986, started up again this year Negative for alcohol or drugs. (Daksha Kelley) Review of Systems Constitutional: COMPLAINS OF: Fatigue, Weight loss, Change in appetite, DENIES : Fever, Chills Respiratory: DENIES: Cough, Shortness of breath Cardiovascular: DENIES: Chest pain Gastrointestinal: COMPLAINS OF: Black stools, Constipation, Diarrhea, Nausea, Vomiting, Heartburn, DENIES: Abdominal pain, Bloody stools, Hematemesis Musculoskeletal: DENIES: Joint pain Integumentary: DENIES: Abnormal pigmentation Hematologic/lymphatic: DENIES: Bruising Neurologic: DENIES: Headache Psychiatric: DENIES: Confusion (Daksha Kelley) GI Exam Vitals I&O Vital Signs Date Time Temp Pulse Resp B/P Pulse Ox O2 Delivery O2 Flow Rate FiO2 10/23/16 07:28 97.6 54 20 135/63 98 10/23/16 04:00 98.0 77 21 130/74 98 10/22/16 22:35 98.0 66 16 130/69 100 Imaging Last Impressions Chest CT 10/22/16 2300 Signed Impressions: Service Date/Time: Saturday, October 22, 2016 23:12 - CONCLUSION: 1. 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 2. Mild atypical appearing infiltrate in the right upper lobe. No other evidence of acute cardiopulmonary disease. López Hayes MD Physical Examination HEENT: Normocephalic; atraumatic; no jaundice. CHEST: CTA CARDIAC: RRR ABDOMEN: Soft, nondistended, nontender; no hepatosplenomegaly; bowel sounds are present in all four quadrants. EXTREMITIES: No clubbing, cyanosis, or edema. SKIN: Normal; no rash; no jaundice. HAND KNITTER: No focal deficits; alert and oriented times three. (Daksha Kelley) Assessment and Plan Plan ASSESSMENT: - Nausea, vomiting. Pt reports long hx of GI symptoms. He reports that he was very sick 8 years ago and found to have H. Pylori. He lost 100 lbs at that time and has never gained this back and states that he has continued to have symptoms, worse for several months. He has tried zofran, states only phenergan helps. He reports that he was evaluated at a hospital in [place] with barium enema- but this was normal and he did not have any further workup. He states his last egd/colonoscopy was 12 years ago. PPI. Zofran prn. - GERD. Pt reports hx of H.Pylori 8 years ago. S/P tx. - Abnormal weight loss. 100 lb weight loss 8 years ago and has lost another additional 20 lbs since August. - Alternating constipation/Diarrhea. States this is chronic. - Recent black tarry stool. States he was at a psychiatric hospital in [place] in July and was given a laxative for constipation and afterwards he had black tarry stool. None since that time. - Occasional BRBPR. States only if he is constipated and straining. - AIDEN, DM, Bipolar d/o per primary PLAN: - Plan for egd/colonoscopy in am - Obtain consents - Clear liquids - NPO after MN - PPI - Zofran prn - Monitor labs - Supportive care - Further recommendations to follow based on results of above - Pt seen and examined by Dr. Rodriguez and myself and this note is written on his behalf (Daksha Kelley) Physician Comments Patient seen and examined Agree with above Continue with current supportive care Monitor labs EGD colonoscopy tomorrow (Bolivar Rodriguez MD) Daksha Kelley Oct 23, 2016 11:13 Bolivar Rodriguez MD Oct 23, 2016 19:57
[2016-10-23 11:27] VITALS: BP 152/81; PULSE 55; RESP 20; TEMP 97.7
[2016-10-23 11:31] LABS: BICARBONATE 23.8 MEQ/L (21.0-32.0); POTASSIUM 3.5 MEQ/L (3.5-5.1)
--- NOTE | 2016-10-23 14:16 | PD.CONS ---
Provisional Diagnosis Admission Date Oct 23, 2016 at 01:41 [place] I. Unspecified anxiety, bipolar disorder [place] II. Deferred [place] III. Diabetes mellitus, renal insufficiency [place] IV. No family support [place] V. 55 History of Present Illness Service Psychiatry Consult Requested By Primary Care Physician Non-Staff HPI The patient is a 61-year-old man, domiciled with the niece in [place], unemployed, single, with psychiatric history anxiety, Bipolar Disorder, multiple psychiatric hospitalizations, previous suicidal attempts by overdosing , last hospitalization was in August 2016 in [place], he is on Depakote 500 mg twice a day, trazodone 200 mg, Seroquel 200 mg Effexor 150 mg twice a day prescribed by a psychiatrist in [place] , medical history of IBS and DM who presents to the ER with complaints of nausea and vomiting. as per Er note "patient states symptoms have been ongoing since July, admitted to Hospital in [place] where he was living at the time and had negative work up per his report. States symptoms have been persistent w/ associated decreased PO intake and weight loss of approx 30lbs. Denies fever, chills or diarrhea. Seen in ER on 10/10/16 for refill of his Depakote after being released from In Psych facility in [place], off meds x4 days while traveling to [facility]. Presented to ER again on 10/22/16 at 19:20 for nausea and vomiting, had been released from [facility] earlier that day after presenting for same complaints. Work up essentially negative except creatinine 1.67, no previous labs for comparison. Was d/c'd w/ prescription for Phenergan. Returned to ER 10/22/16 at 22:41 for ongoing nausea/vomiting. S/p Zofran and Morphine w/ minimal improvement. CXR w / abnormal findings, CT Chest bilateral pleural plaque typical of chronic asbestos related disease and mild atypical infiltrate in RU". On psychiatric evaluation patient was found in his bed in the resting comfortably, calm, cooperative, patient states that other than abdominal pain he doesn't have any additional complaints. Patient says that he has been mentally stable since was discharged from his last psychiatric hospitalization in [place] about a month ago. He claims that he has been stable his current psychotropic regimen. He denies depressive symptoms, he denies anxiety, he denies heidi, he denies psychosis. Patient is fully oriented 3. No gross cognitive impairment observed. Patient denies suicidal or homicidal ideation, he denies visual and auditory hallucinations. He denies the use of alcohol and illicit drugs. After being medically cleared today, the patient is planning going back to [place], and also he is planning to continue his outpatient psychiatric care with his psychiatrist there. Review of Systems Constitutional: DENIES: Diaphoretic episodes, Fatigue, Fever, Weight gain, Weight loss, Chills, Dizziness, Change in appetite, Night Sweats Endocrine: DENIES: Heat/cold intolerance, Polydipsia, Polyuria, Polyphagia Eyes: DENIES: Blurred vision, Diplopia, Eye inflammation, Eye pain, Vision loss , Photosensitivity, Double Vision Ears, nose, mouth, throat: DENIES: Tinnitus, Hearing loss, Vertigo, Nasal discharge, Oral lesions, Throat pain, Hoarseness, Ear Pain, Running Nose, Epistaxis, Sinus Pain, Toothache, Odynophagia Respiratory: DENIES: Apneas, Cough, Snoring, Wheezing, Hemoptysis, Sputum production, Shortness of breath Cardiovascular: DENIES: Chest pain, Palpitations, Syncope, Dyspnea on Exertion , PND, Lower Extremity Edema, Orthopnea, Claudication Gastrointestinal: COMPLAINS OF: Abdominal pain, Diarrhea Genitourinary: DENIES: Sexual dysfunction, Urinary frequency, Urinary incontinence, Urgency, Hematuria, Dysuria, Nocturia, Penile Discharge, Testicular Pain, Testicular Swelling Musculoskeletal: DENIES: Joint pain, Muscle aches, Stiffness, Joint Swelling, Back pain, Neck pain Integumentary: DENIES: Abnormal pigmentation, Nail changes, Pruritus, Rash Hematologic/lymphatic: DENIES: Bruising, Lymphadenopathy Immunologic/allergic: DENIES: Eczema, Urticaria Neurologic: DENIES: Abnormal gait, Headache, Localized weakness, Paresthesias, Seizures, Speech Problems, Tremor, Poor Balance Psychiatric: DENIES: Anxiety, Confusion, Mood changes, Depression, Hallucinations, Agitation, Suicidal Ideation, Homicidal Ideation, Delusions Past Family Social History Coded Allergies: Codeine (Verified Allergy, Severe, Nausea/Vomiting, 10/22/16) Mellaril (Verified Allergy, Severe, Nausea/Vomiting, 10/22/16) Active Scripts Promethazine (Phenergan)25 Mg Tab25 Mg PO Q6H PRN (Nausea/Vomiting) #20 TAB Ref 0 Prov:Guanako Fuentes MD 1/29/17 Reported Medications Chlorthalidone 25 Mg Tab25 Mg PO DAILY Ref 0 10/22/16 Venlafaxine ER 24 HR 75 Mg Cap75 Mg PO DAILY #30 CAP Ref 0 10/22/16 Amlodipine 2.5 Mg Tab2.5 Mg PO DAILY #30 TAB Ref 0 10/22/16 Potassium Chloride ER 10 Meq Cap10 Meq PO DAILY #30 CAP Ref 0 10/22/16 Ondansetron Odt (Zofran Odt)4 Mg Tab4 Mg SL Q6HR PRN (Nausea/Vomiting) #30 TAB Ref 0 10/22/[address] 250 Mg [id number] Mg PO HS #60 TAB Ref 0 10/22/16 Quetiapine (Seroquel)200 Mg [id number] Mg PO HS #30 TAB Ref 0 10/09/16 Trazodone 300 Mg [id number] Mg PO HS #30 TAB Ref 0 10/09/16 Current Medications Medications (Trade) Dose Ordered Sig/Al Route Start Time Stop Time Status Last Admin (NS 1000 ml Inj) 1,000 ml @ 100 mls/hr Q10H IV 10/23/16 01:28 10/23/16 13:00 (NS Flush) 2 ml UNSCH PRN FLUSH 10/23/16 01:30 (NS Flush) 2 ml BID FLUSH 10/23/16 09:00 (Zofran Inj) 4 mg Q6H PRN IVP 10/23/16 01:30 (Dulcolax Supp) 10 mg DAILY PRN IA 10/23/16 01:30 (Tylenol) 650 mg Q6H PRN PO 10/23/16 01:30 (Morphine Inj) 2 mg Q3H PRN IV 10/23/16 01:30 (Phenergan Inj) 12.5 mg Q4H PRN IM 10/23/16 01:30 10/23/16 05:38 (Protonix Inj) 40 mg Q12H IV PUSH 10/23/16 09:00 10/23/16 08:52 (Norvasc) 2.5 mg DAILY PO 10/23/16 09:00 10/23/16 08:52 (Depakote Dr) 500 mg HS PO 10/23/16 21:00 (SEROquel) 200 mg HS PO 10/23/16 21:00 (Effexor Xr) 75 mg DAILY PO 10/23/16 09:00 10/23/16 08:52 (D50w (Vial) Inj) 25 ml UNSCH PRN IV PUSH 10/23/16 02:30 (Glucagon Inj) 1 mg UNSCH PRN OTHER 10/23/16 02:30 (Colyte Liq) 4,000 ml ONCE ONCE PO 10/23/16 16:00 10/23/16 16:01 (Desyrel) 100 mg HS PO 10/23/16 21:00 UNV Family History Denies Social History Patient was born and raised in [place], he lives with the niece in [place] , he has been living in [facility] for 3 months, is unemployed, retired, single, his highest level of education is 12th grade. Physical Exam Vital Signs Vital Signs Date Time Temp Pulse Resp B/P Pulse Ox O2 Delivery O2 Flow Rate FiO2 10/23/16 11:27 97.7 55 20 152/81 10/23/16 07:28 98 Mental Status Examination Appearance man, age appearing, comfortably lying down in bed, calm, cooperative Speech: Unremarkable Orientation: x3 Memory: Unremarkable Thought Process: Logical Thought Content: Unremarkable Hallucination Type: None Attention and Concentration: Good Suicidal Ideation: No Previous Suicide Attempts: No Homicidal Ideation: No Previous Homicide Attempts: No Insight: Good Affect: Good Mood: Appropriate Motor Activity: Normal gait Assessment & Plan Problem List: (1) Bipolar disorder Assessment & Plan: On psychiatric evaluation the patient does not present any significant acute, concerning objective or subjective symptomatology of depression, anxiety, heidi or psychosis. Patient denies suicidal and homicidal ideation, he denies visual and auditory hallucinations. Patient claims to be in stable in his current psychotropic regimen prescribed by psychiatrist in [place]. Can continue current psychotropics, with the exception of Trazodone 300 mg. we will decrease Trazodone to 100 mg, which is the highest recommended dose for insomnia. Will order Depakote level to verify compliance. He does not need any immediate psychiatric care, he does not meet criteria for psychiatric admission at this moment. There is no clear evidence of malingering based on this evaluation, he psychiatric history is kind of contradictory and week, but there is not a clear secondary gain other than using the hospital as a penitentiary. Motivation, support, psychotropic to provide. Continue psychiatric care as an outpatient with psychiatrist in [place]. ICD Code: F31.9 Assessment & Plan Estimated LOS: days Problem Qualifiers (1) Bipolar disorder: Joni Hodges MD Oct 23, 2016 14:16
[2016-10-23 15:18] VITALS: BP 145/70; PULSE 55; RESP 20; TEMP 98.2; O2SAT 100
[2016-10-23] MEDS ORDERED: PEG (High)/E-LYTE SOLN 4000 ML BTL PO ONE (16:00)
[2016-10-23 20:37] VITALS: BP 150/71; PULSE 82; RESP 18; TEMP 97.8; O2SAT 97
[2016-10-23] MEDS ORDERED: traZODone HCL 100 MG TAB PO SCH (21:00)
[2016-10-23] MEDS: traZODone HCL 100 MG TAB PO SCH (21:00)
[2016-10-23] MEDS: DIVALPROEX SODIUM DELAYED RELEASE 250 MG TAB PO SCH (21:00)
[2016-10-23] MEDS: QUEtiapine FUMARATE 200 MG TAB PO SCH (21:00)
[2016-10-24] VITALS: BP_SYST 131; BP_SYST 148; BP_DIAS 64; BP_DIAS 72; PULSE 67; PULSE 78; RESP 18; TEMP 98.4; TEMP 98.9; O2SAT 97; O2SAT 98
[2016-10-24 04:00] VITALS: BP 146/68; PULSE 84; RESP 21; TEMP 97.9; O2SAT 98
[2016-10-24] MEDS: INSULIN ASPART SUPPLEMENTAL SCALE SQ SCH ×4 (06:21→21:12)
[2016-10-24 07:17] LABS: AUTOMATED NEUTROPHIL # 2.7 TH/MM3 (1.8-7.7); BASOPHIL % 0.6 % (0.0-2.0); EOSINOPHIL # 0.1 TH/MM3 (0-0.4); EOSINOPHIL % 1.9 % (0.0-4.0); HEMATOCRIT 37.2 % (39.0-51.0); HEMO FLAGS DIFF FINAL; LYMPH % 44.2 % (9.0-44.0); LYMPHOCYTE # 2.6 TH/MM3 (1.0-4.8); MEAN CELL VOLUME 81.8 FL (80.0-100.0); MEAN CORPUSCULAR HGB CONC 34.2 % (32.0-36.0); MONO % 6.8 % (0.0-8.0); NEUT % 46.5 % (16.0-70.0); PLATELET COUNT 162 TH/MM3 (150-450); RED BLOOD COUNT 4.55 MIL/MM3 (4.50-5.90); RED CELL DISTRIBUTION WIDTH 13.5 % (11.6-17.2); WHITE BLOOD COUNT 5.9 TH/MM3 (4.0-11.0)
[2016-10-24 07:45] LABS: ALT (GPT) 23 U/L (12-78); ANION GAP 11 MEQ/L (5-15); AST (GOT) 39 U/L (15-37); BICARBONATE 24.2 MEQ/L (21.0-32.0); BLOOD UREA NITROGEN 10 MG/DL (7-18); CHLORIDE 109 MEQ/L (98-107); GLOMERULAR FILTRATION RATE 54 ML/MIN (>89); POTASSIUM 3.1 MEQ/L (3.5-5.1); SODIUM (NA) 144 MEQ/L (136-145)
[2016-10-24 07:47] LABS: ALKALINE PHOSPHATASE 62 U/L (45-117); TOTAL BILIRUBIN ADULT 0.5 MG/DL (0.2-1.0)
[2016-10-24] MEDS ORDERED: POTASSIUM CHLORIDE 20 MEQ CONTROLLED RELEASE TAB PO ONE (08:00)
[2016-10-24 08:03] VITALS: BP 118/64; PULSE 54; RESP 20; TEMP 97; O2SAT 100
--- NOTE | 2016-10-24 08:34 | HHI.PR ---
Subjective Remarks Follow-up for nausea and vomiting. The patient is upset about being nothing by mouth after midnight. GI is planning an EGD today. He states in numerous episodes of vomiting yesterday, nonbloody, none overnight. No nausea at this time. He denies any abdominal pain. Having loose stools from bowel prep overnight. Objective Vitals Vital Signs Date Time Temp Pulse Resp B/P Pulse Ox O2 Delivery O2 Flow Rate FiO2 10/24/16 08:03 97.0 54 20 118/64 100 10/24/16 04:00 97.9 84 21 146/68 98 10/24/16 00:00 98.4 67 18 148/72 98 10/23/16 20:37 97.8 82 18 150/71 97 10/23/16 15:18 98.2 55 20 145/70 100 10/23/16 11:27 97.7 55 20 152/81 I/O 10/23/16 10/23/16 10/23/16 10/24/16 10/24/16 10/24/16 07:00 15:00 23:00 07:00 15:00 23:00 Intake Total 1750 ml Balance 1750 ml Intake Oral 900 ml IV Total 850 ml # Voids 7 # Bowel Movements 0 Result Diagram: 10/24/16 0555 10/24/16 0555 Imaging Last Impressions Chest CT 10/22/16 2300 Signed Impressions: Service Date/Time: Saturday, October 22, 2016 23:12 - CONCLUSION: 1. 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 2. Mild atypical appearing infiltrate in the right upper lobe. No other evidence of acute cardiopulmonary disease. López Hayes MD Objective Remarks GENERAL: Well-developed well-nourished. In no acute distress. SKIN: Warm and dry. No lesions noted. HEENT: Normocephalic. Pupils equal and round. Mucous membranes pink and moist. CARDIOVASCULAR: Regular rate and rhythm. No murmur appreciated. RESPIRATORY: No accessory muscle use. Clear to auscultation. Breath sounds equal bilaterally. GASTROINTESTINAL: Abdomen soft, non-tender, nondistended. Bowel sounds x4. MUSCULOSKELETAL: No obvious deformities. No clubbing or cyanosis. No edema. NEUROLOGICAL: Awake and alert. No focal neurological deficits. Moves upper and lower extremities spontaneously. Normal speech. PSYCHIATRIC: Slightly odd mood and guarded affect; insight and judgment fair to normal. A/P Problem List: (1) Intractable vomiting with nausea ICD Code: R11.2 Status: Acute (2) Renal insufficiency ICD Code: N28.9 Status: Acute (3) DM (diabetes mellitus) ICD Code: E11.9 Status: Chronic (4) Schizophrenia ICD Code: F20.9 Status: Chronic Assessment and Plan 61-year-old male with a PMH of Bipolar Disorder, IBS and DM who presents to the ER with complaints of nausea, vomiting, weight loss 30+ lbs. Intractable Nausea/Vomiting: reports ongoing symptoms since July 2016 w/ decreased PO intake and associated 30lb weight loss. Previous work up negative per his report. No c/o abdominal pain or diarrhea. Afebrile, no leukocytosis. Multiple ER presentations for same, unclear if secondary motivation as pt is Homeless. Continue w/ IV analgesics/antiemetics. Protonix IV. GI consulted, planning an EGD and colonoscopy today. AIDEN vs CKD: Creatinine 1.67 on 10/22, no previous labs for comparison. IVF for hydration. Creatinine stable at 1.33 overnight. DM: Reportedly diagnosed w/ DM in [place], ? contributing to symptoms, not on medications. Hemoglobin A1c pending. Sliding Scale w/ Accu-Cheks. Bipolar Disorder: Recently d/c'd from Inpatient Psych Facility in [place] prior to coming to [facility]. Continue home Depakote, Seroquel and Trazodone. Questionable malingering?, Consulted Psychiatry, appreciate input. Hypokalemia: Likely from poor oral intake. Potassium 3.1, replace orally. Magnesium within normal limits. DVT Prophylaxis: SCD/Teds. Written by Carlos Ornelas, acting as scribe for Dr. Pathak on 10/24/16 at 08:34. The documentation accurately reflects the work performed [id number] by me Dr. Pathak on 10/24/16 at 08:34. Discharge Planning Disposition pending GI recommendations. Problem Qualifiers (1) Intractable vomiting with nausea: Qualified Code: R11.2 - Intractable vomiting with nausea, unspecified vomiting type Carlos Ornelas Oct 24, 2016 08:34 Radha Pathak MD Oct 24, 2016 14:06
[2016-10-24] MEDS: amLODIPine BESYLATE 5 MG TAB PO SCH (09:42)
[2016-10-24] MEDS: SODIUM CHLORIDE 0.9% FLUSH 5 ML FLUSH FLUSH SCH ×2 (09:42→21:11)
[2016-10-24] MEDS: VENLAFAXINE HCL XR 75 MG CAP PO SCH (09:42)
[2016-10-24] MEDS: PANTOPRAZOLE SODIUM 40 MG VIAL IV PUSH SCH ×2 (09:42→21:11)
[2016-10-24] MEDS: SODIUM CHLOR 0.9% 1000 ML INJ 1,000 ML IV SCH ×2 (09:43→17:28)
[2016-10-24 11:30] VITALS: BP 118/64; PULSE 54; RESP 20; TEMP 97; O2SAT 99
[2016-10-24 12:27] LABS: HEMOGLOBIN A1a 1.1 %; HEMOGLOBIN A1b 1.7 %; HEMOGLOBIN Ao 84.7 %; HEMOGLOBIN LA1C 1.7 %; HEMOGLOBIN P3 3.5 %
--- NOTE | 2016-10-24 13:11 | PD.PROCEDR ---
GI Procedure REFERRING PHYSICIAN FLORY PROCEDURE PERFORMED EGD with biopsy followed by colonoscopy INDICATION FOR PROCEDURE Nausea vomiting change in bowel habits weight loss PROCEDURE: The procedure, risks and benefits were discussed with Mr. Gomes and informed consent was obtained. Anesthesia sedated him with Diprivan. He was placed in the left lateral decubitus position. EGD: The Pentax videoscope was introduced through the oropharynx and advanced to the second portion of the duodenum under direct visualization. Retroflexion was performed in the stomach. FINDINGS: Esophagus there was patchy erythema in the distal esophagus suggestive of reflux esophagitis no ulcerations or erosions and the Z line was irregular and biopsies were taken The stomach there was a small gastric polyp in the fundus this was excised using cold biopsy forceps gastric mucosa appeared to be somewhat erythemic specifically in the antrum and the body in a punctate fashion no ulcerations or erosions no blood or bleeding antral biopsies were taken for further evaluation The duodenum this was unremarkable normal limits Colonoscopy: The Pentax videoscope was introduced through the rectum and advanced to cecum where the ileocecal valve and appendiceal orifice were identified. Retroflexion was performed in the rectum. Colonic prep was fair FINDINGS: Colonic withdrawal time was greater than 6 minutes as the scope was slowly withdrawn colonic mucosa was carefully inspected this is noted to be unremarkable and within normal limits the whole way through the patient was noted to have rare diverticuli in the sigmoid region retroflexion in the rectum and rectal examination were unremarkable ESTIMATED BLOOD LOSS: None SPECIMENS REMOVED: Esophageal and gastric COMPLICATIONS: None IMPRESSION: Reflux esophagitis Irregular Z line Gastric polyp Gastritis Diverticulosis Otherwise normal colonoscopy PLAN: Await biopsy Recommend PPI and reflux precautions We'll obtain CT of the abdomen and pelvis with contrast further evaluate for weight loss and pain nausea and vomiting Continue present supportive care Bolivar Rodriguez MD Oct 24, 2016 13:11
[2016-10-24] MEDS ORDERED: DIATRIZOATE MEGLUM/DIATRIZOATE SOD 9 ML CUP PO ONE (13:45)
[2016-10-24 14:47] VITALS: BP 159/57; PULSE 58; RESP 18; TEMP 97.4; O2SAT 100
[2016-10-24] MEDS ORDERED: IOHEXOL 350 MG/ML 10 ML VIAL (for RAD DIAG) IV ONE (16:49)
--- NOTE | 2016-10-24 16:59 | RADRPT ---
EXAM DATE/TIME: 10/24/2016 16:24 [facility] COMPARISON: No previous studies available for comparison. INDICATIONS : Weight loss with nausea and vomiting for two months. IV CONTRAST: 70 cc Omnipaque 350 (iohexol) IV ORAL CONTRAST: Prescribed oral contrast ingested. RADIATION DOSE: 9.96 CTDIvol (mGy) MEDICAL HISTORY : [facility] SURGICAL HISTORY : Tonsillectomy. Tendon surgery ENCOUNTER: Initial ACUITY: 2 months PAIN SCALE: 0/10 LOCATION: Abdomen TECHNIQUE: Volumetric scanning of the abdomen and pelvis was performed. Using automated exposure control and ad justment of the mA and/or kV according to patient size, radiation dose was kept as low as reasonably achievable to obtain optimal diagnostic quality images. FINDINGS: LOWER LUNGS: The visualized lower lungs are clear. Numerous diaphragmatic calcifications LIVER: Homogeneous density without lesion. There is no dilation of the biliary tree. Numerous non calcifie d gallstones. SPLEEN: Normal size without lesion. PANCREAS: Within normal limits. KIDNEYS: Normal in size and shape. There is no mass, stone or hydronephrosis. ADRENAL GLANDS: Within normal limits. VASCULAR: There is no aortic aneurysm. BOWEL/MESENTERY: The stomach, small bowel, and colon demonstrate no acute abnormality. There is no free intraperitone al air or fluid. ABDOMINAL WALL: Within normal limits. RETROPERITONEUM: There is no lymphadenopathy. BLADDER: No wall thickening or mass. REPRODUCTIVE: Within normal limits. INGUINAL: There is no lymphadenopathy or hernia. MUSCULOSKELETAL: Within normal limits for patient age. CONCLUSION: Numerous gallstones. Diaphragmatic calcifications. Tien Flynn MD on October 24, 2016 at 16:55 Board Certified Radiologist. This report was verified electronically.
[2016-10-24] MEDS ORDERED: PROPOFOL 200 MG/20 ML AMP IV ONE (18:00)
[2016-10-24 18:27] VITALS: BP 136/75; PULSE 53; RESP 19; O2SAT 100
[2016-10-24] MEDS: DIVALPROEX SODIUM DELAYED RELEASE 250 MG TAB PO SCH (21:11)
[2016-10-24] MEDS: QUEtiapine FUMARATE 200 MG TAB PO SCH (21:12)
[2016-10-24] MEDS: traZODone HCL 100 MG TAB PO SCH (21:12)
[2016-10-25 00:21] VITALS: BP 131/61; PULSE 54; RESP 20; TEMP 97; O2SAT 97
[2016-10-25 05:16] VITALS: BP 87/55; PULSE 67; RESP 20; TEMP 97.6; O2SAT 100
[2016-10-25] MEDS: INSULIN ASPART SUPPLEMENTAL SCALE SQ SCH (06:39)
[2016-10-25 07:09] VITALS: BP 93/57; PULSE 54; RESP 19; TEMP 98; O2SAT 98
[2016-10-25] MEDS ORDERED: PILL SPLITTER OTHER PRN (08:00)
[2016-10-25] MEDS: amLODIPine BESYLATE 5 MG TAB PO SCH (08:25)
[2016-10-25] MEDS: SODIUM CHLORIDE 0.9% FLUSH 5 ML FLUSH FLUSH SCH (08:45)
[2016-10-25] MEDS: VENLAFAXINE HCL XR 75 MG CAP PO SCH (08:46)
[2016-10-25] MEDS: PANTOPRAZOLE SODIUM 40 MG VIAL IV PUSH SCH (08:46)
[2016-10-25] MEDS: SODIUM CHLOR 0.9% 1000 ML INJ 1,000 ML IV SCH (08:49)
[2016-10-25 08:56] LABS: BICARBONATE 23.4 MEQ/L (21.0-32.0); POTASSIUM 3.5 MEQ/L (3.5-5.1)
[2016-10-25] MEDS ORDERED: TRAZ50TA12 PO (09:13)
[2016-10-25] MEDS ORDERED: PROT40TA PO (09:13)
[2016-10-25] MEDS ORDERED: METF500T PO (09:21)
--- NOTE | 2016-10-25 09:21 | HHI.DS ---
Discharge Summary Admission Date Oct 23, 2016 at 01:41 Discharge Date: Oct 25, 2016 Admitting Diagnosis Intractable Nausea/ Vomiting (1) Intractable vomiting with nausea ICD Code: R11.2 Diagnosis: Principal (2) Renal insufficiency ICD Code: N28.9 Diagnosis: Secondary (3) DM (diabetes mellitus) ICD Code: E11.9 Diagnosis: Secondary (4) Schizophrenia ICD Code: F20.9 Diagnosis: Secondary Procedures EGD and colonoscopy 10/24/16 Brief History - From Admission This is a 61-year-old male with a PMH of Bipolar Disorder, IBS and DM who presents to the ER with complaints of nausea and vomiting. States symptoms have been ongoing since July, admitted to Hospital in [place] where he was living at the time and had negative work up per his report. States symptoms have been persistent w/ associated decreased PO intake and weight loss of approx 30lbs. Denies fever, chills or diarrhea. Seen in ER on 10/10/16 for refill of his Depakote after being released from In Psych facility in [place] , off meds x4 days while traveling to [facility]. Presented to ER again on at 19:20 for nausea and vomiting, had been released from [facility] earlier that day after presenting for same complaints. Work up essentially negative except creatinine 1.67, no previous labs for comparison. Was d/c'd w/ prescription for Phenergan. Returned to ER 10/22/16 at 22:41 for ongoing nausea/ vomiting. S/p Zofran and Morphine w/ minimal improvement. CXR w/ abnormal findings, CT Chest bilateral pleural plaque typical of chronic asbestos related disease and mild atypical infiltrate in RUL. CBC/BMP: 10/24/16 0555 10/25/16 0759 Significant Findings Laboratory Tests Test 10/23/16 10/23/16 10/24/16 10/25/16 10:42 10:52 05:55 07:59 Valproic Acid (Depakene) Level 21 MCG/ML (50-100) Chloride Level 112 MEQ/L 109 MEQ/L 111 MEQ/L (98-107) (98-107) (98-107) Creatinine 1.38 MG/DL 1.33 MG/DL 1.39 MG/DL (0.60-1.30) (0.60-1.30) (0.60-1.30) Estimat Glomerular Filtration 52 ML/MIN (>89) 54 ML/MIN (>89) 52 ML/MIN (>89) Rate Random Glucose 108 MG/DL (74-106) Hemoglobin 12.7 GM/DL (13.0-17.0) Hematocrit 37.2 % (39.0-51.0) Lymphocytes (%) (Auto) 44.2 % (9.0-44.0) Potassium Level 3.1 MEQ/L (3.5-5.1) Hemoglobin A1c 6.7 % (4.3-6.0) Aspartate Amino Transf 39 U/L (15-37) (AST/SGOT) Imaging Last Impressions Abdomen/Pelvis CT 10/24/16 0000 Signed Impressions: Service Date/Time: Monday, October 24, 2016 16:24 - CONCLUSION: Numerous gallstones. Diaphragmatic calcifications. Tien Flynn MD Chest CT 10/22/16 2300 Signed Impressions: Service Date/Time: Saturday, October 22, 2016 23:12 - CONCLUSION: 1. 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 2. Mild atypical appearing infiltrate in the right upper lobe. No other evidence of acute cardiopulmonary disease. López Hayes MD PE at Discharge GENERAL: Well-developed well-nourished. In no acute distress. SKIN: Warm and dry. No lesions noted. HEENT: Normocephalic. Pupils equal and round. Mucous membranes pink and moist. CARDIOVASCULAR: Regular rate and rhythm. No murmur appreciated. RESPIRATORY: No accessory muscle use. Clear to auscultation. Breath sounds equal bilaterally. GASTROINTESTINAL: Abdomen soft, non-tender, nondistended. Bowel sounds x4. MUSCULOSKELETAL: No obvious deformities. No clubbing or cyanosis. No edema. NEUROLOGICAL: Awake and alert. No focal neurological deficits. Moves upper and lower extremities spontaneously. Normal speech. PSYCHIATRIC: Slightly odd mood and guarded affect; insight and judgment fair to normal. Pt update on day of discharge The patient feels much better today. He is been tolerating diet with no vomiting. He feels comfortable going home today. Hospital Course 61-year-old male with a PMH of Bipolar Disorder, IBS and DM who presents to the ER with complaints of nausea, vomiting, weight loss 30+ lbs. Intractable Nausea/Vomiting: reports ongoing symptoms since July 2016 w/ decreased PO intake and associated 30lb weight loss. Previous work up negative per his report. No c/o abdominal pain or diarrhea. Afebrile, no leukocytosis. Multiple ER presentations for same, unclear if secondary motivation as pt is Homeless. Continue Protonix. GI consulted, performed EGD and colonoscopy, showed reflux esophagitis and gastritis. Follow-up for biopsy results. Abdominal CT showed gallstones, no cholecystitis. AIDEN vs CKD: Creatinine 1.67 on 10/22, no previous labs for comparison. Received IVF. Creatinine stable at 1.3. DM: Reportedly diagnosed w/ DM in [place], ? contributing to symptoms, not on medications. Fasting glucose is 82, 103. Hemoglobin A1c 6.7. Required 1 unit of sliding scale insulin throughout her entire admission. Start metformin 500 mg daily. Needs outpatient PCP follow-up and monitoring. Trial of dietary modifications. Bipolar Disorder: Recently d/c'd from Inpatient Psych Facility in [place] prior to coming to [facility]. Continue home Depakote, Seroquel and Trazodone. Consulted Psychiatry, appreciate input, medications adjusted. Hypokalemia: Likely from poor oral intake. Potassium 3.1, replaced orally, now within normal limits. Magnesium within normal limits. Pt Condition on Discharge: Stable Discharge Disposition: Discharge Home Discharge Time: > 30 minutes Discharge Instructions DIET: Follow Instructions for: Heart Healthy Diet Activities you can perform: Regular-No Restrictions Follow up Referrals: Gastroenterology - 2 Weeks with Bolivar Rodriguez MD PCP Follow-up - 1 Week New Medications: Pantoprazole (Protonix) 40 Mg Tab 40 MG PO DAILY Reflux #30 Ref 0 TAB Trazodone (Trazodone) 50 Mg Tab 100 MG PO HS Insomnia #30 TAB Continued Medications: Amlodipine (Amlodipine) 2.5 Mg Tab 2.5 MG PO DAILY Blood Pressure Management #30 Ref 0 TAB Chlorthalidone (Chlorthalidone) 25 Mg Tab 25 MG PO DAILY Ref [address] (Divalproex DR) 250 Mg Tabdr 500 MG PO HS Control Seizures #60 Ref 0 TAB Ondansetron Odt (Zofran Odt) 4 Mg Tab 4 MG SL Q6HR PRN Nausea/Vomiting #30 Ref 0 TAB Potassium Chloride ER (Potassium Chloride ER) 10 Meq Cap 10 MEQ PO DAILY Electrolyte Replacement #30 Ref 0 CAP Promethazine (Phenergan) 25 Mg Tab 25 MG PO Q6H PRN Nausea/Vomiting #20 Ref 0 TAB Quetiapine (Seroquel) 200 Mg Tab 200 MG PO HS #30 Ref 0 TAB Venlafaxine ER 24 HR (Venlafaxine ER 24 HR) 75 Mg Cap 75 MG PO DAILY #30 Ref 0 CAP Discontinued Medications: Trazodone (Trazodone) 300 Mg Tab 300 MG PO HS Control Depression #30 Ref 0 TAB Additional Information Written by Carlos Ornelas, acting as scribe for Dr. Pathak on 10/25/16 at 08:16. The documentation accurately reflects the work performed [id number] by ut Dr. Pathak on 10/25/16 at 08:16. Carlos Ornelas Oct 25, 2016 09:21 Radha Pathak MD Oct 25, 2016 13:24
== END 2016-10-25 15:47 | disposition home or self-care (01) ==
LOC: NEPE 22:33 → HSDC 10-23 01:24 → HSDI 10-23 01:41 → NEDA 10-23 03:42 → NEPGCP 10-23 04:55 → NEPFCDU 10-25 00:27 → NEPGCP 10-25 00:29
PROVIDERS: ADMIT Hospitalist; ATTEND Hospitalist
DX: K29.70 Gastritis, unspecified, without bleeding (principal); N28.9 Disorder of kidney and ureter, unspecified; E11.9 Type 2 diabetes mellitus without complications; F20.9 Schizophrenia, unspecified; R63.4 Abnormal weight loss; K21.0 Gastro-esophageal reflux disease with esophagitis; K58.1 Irritable bowel syndrome with constipation; K58.9 Irritable bowel syndrome, unspecified; Z79.899 Other long term (current) drug therapy; I45.2 Bifascicular block; R00.1 Bradycardia, unspecified; J61 Pneumoconiosis due to asbestos and other mineral fibers; R63.0 Anorexia; R68.81 Early satiety; F17.210 Nicotine dependence, cigarettes, uncomplicated; Z86.19 Personal history of other infectious and parasitic diseases; R19.5 Other fecal abnormalities; K31.7 Polyp of stomach and duodenum; K57.90 Diverticulosis of intestine, part unspecified, without perforation or abscess without bleeding; K22.9 Disease of esophagus, unspecified; F31.9 Bipolar disorder, unspecified; I45.10 Unspecified right bundle-branch block; I44.4 Left anterior fascicular block; R94.31 Abnormal electrocardiogram [ECG] [EKG]
CPT/HCPCS: 00740; 00810; 43239; 43251; 45378; 71010; 71250; 74177; 80048; 80053; 80164; 80320; 82948; 83036; 83690; 83735; 84484; 85025; 85610; 85730; 88305; 93005; 96361; 96372; 96374; 96375; 99285; C9113; G0378; J1815; J2405; J2550; J7030; Q9963; Q9967; 88312

== ENCOUNTER 2016-11-16 13:37 | Inpatient (IN) | payer MEDICARE ==
[~2016-11-16 13:37] MED LIST changes: +METF500T PO; +PROT40TA PO; -TRAZ300T2 PO; +TRAZ50TA12 PO
[2016-11-16 15:54] VITALS: BP 123/59; PULSE 53; RESP 18; TEMP 97.7
[2016-11-16] MEDS ORDERED: LORazepam 0.5 MG TAB PO PRN (16:45)
[2016-11-16] MEDS ORDERED: ACETAMINOPHEN 325 MG TAB PO PRN (16:45)
[2016-11-16] MEDS ORDERED: ALUMINUM/MAGNESIUM/SIMETH 30 ML CUP PO PRN (16:45)
[2016-11-16] MEDS ORDERED: BENZTROPINE MESYLATE 2 MG/2 ML VIAL IM PRN (16:45)
[2016-11-16] MEDS ORDERED: BENZTROPINE MESYLATE 1 MG TAB PO PRN (16:45)
[2016-11-16] MEDS ORDERED: LORazepam 2 MG/ML VIAL IM PRN (16:45)
[2016-11-16] MEDS ORDERED: diphenhydrAMINE HCL 50 MG CAP PO PRN (16:45)
[2016-11-16] MEDS ORDERED: MAGNESIUM HYDROXIDE SUSP 30 ML CUP PO PRN (16:45)
[2016-11-16] MEDS: NICOTINE 21 MG/24 HR PATCH T-DERMAL SCH (17:00)
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
[2016-11-16] MEDS: traZODone HCL 100 MG TAB PO SCH (20:32)
[2016-11-16] MEDS: DIVALPROEX SODIUM E.R. 250 MG TAB PO SCH (20:32)
[2016-11-16] MEDS: METOPROLOL TARTRATE 25 MG TAB PO SCH (20:43)
[2016-11-16] MEDS: ATORVASTATIN 20 MG TAB PO SCH (20:43)
[2016-11-17 06:03] VITALS: BP 156/72; PULSE 66; RESP 18; TEMP 97.7; O2SAT 98
[2016-11-17] MEDS: MULTIVITAMIN TAB PO SCH (08:45)
[2016-11-17] MEDS: ASPIRIN EC 81 MG TABEC PO SCH (08:45)
[2016-11-17] MEDS: METOPROLOL TARTRATE 25 MG TAB PO SCH ×2 (08:46→20:11)
[2016-11-17 08:50] LABS: AUTOMATED NEUTROPHIL # 4.1 TH/MM3 (1.8-7.7); BASOPHIL % 0.6 % (0.0-2.0); EOSINOPHIL # 0.1 TH/MM3 (0-0.4); EOSINOPHIL % 0.8 % (0.0-4.0); HEMATOCRIT 36.5 % (39.0-51.0); HEMO FLAGS DIFF FINAL; LYMPH % 31.3 % (9.0-44.0); LYMPHOCYTE # 2.1 TH/MM3 (1.0-4.8); MEAN CELL VOLUME 83.3 FL (80.0-100.0); MEAN CORPUSCULAR HEMOGLOBIN 27.4 PG (27.0-34.0); MEAN CORPUSCULAR HGB CONC 32.9 % (32.0-36.0); MONO % 6.5 % (0.0-8.0); NEUT % 60.8 % (16.0-70.0); PLATELET COUNT 204 TH/MM3 (150-450); RED BLOOD COUNT 4.38 MIL/MM3 (4.50-5.90); RED CELL DISTRIBUTION WIDTH 15.1 % (11.6-17.2); WHITE BLOOD COUNT 6.8 TH/MM3 (4.0-11.0)
[2016-11-17] MEDS: REMOVE OLD PATCH T-DERMAL SCH ×2 (08:51→08:52)
[2016-11-17] MEDS: NICOTINE 21 MG/24 HR PATCH T-DERMAL SCH (08:57)
[2016-11-17] MEDS ORDERED: QUEtiapine FUMARATE 100 MG TAB PO SCH (09:00)
[2016-11-17 09:09] LABS: ANION GAP 8 MEQ/L (5-15); AST (GOT) 20 U/L (15-37); BICARBONATE 28.2 MEQ/L (21.0-32.0); BLOOD UREA NITROGEN 10 MG/DL (7-18); CHLORIDE 102 MEQ/L (98-107); GLOMERULAR FILTRATION RATE 64 ML/MIN (>89); POTASSIUM 4.1 MEQ/L (3.5-5.1); SODIUM (NA) 138 MEQ/L (136-145)
[2016-11-17 09:19] LABS: ALKALINE PHOSPHATASE 71 U/L (45-117); ALT (GPT) 30 U/L (12-78); HDL CHOLESTEROL 47.8 MG/DL (40.0-60.0); LDL CHOLESTEROL 65 MG/DL (0-99); TOTAL BILIRUBIN ADULT 0.4 MG/DL (0.2-1.0)
--- NOTE | 2016-11-17 10:48 | HHI.PYPN ---
Subjective Remarks Patient seen and examined. Chart reviewed. Case discussed with nursing staff. On my examination today, the patient remains a little distractible and rambling. He says, "I got a shower, I'm white again. That's a joke. 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 Affect remains a little labile and he at one point asks, seemingly to himself, "why do I cry when people are so barbaric and demanding." We discuss the lack of Pristiq in our pharmacy and other options to replace the Effexor, which he did not feel was helping much. He does want to remain on an antidepressant, and we settle on Cymbalta. Denies side effects from medications currently. Review of Systems Other No physical complaints today Objective Alert: Yes [place]: Person, Place, Date Mood: Other (mildly elevated) Affect: Labile Memory Intact: Comment (intact) Hallucinations: Other (no AVH) Delusions: No Delusion Type: Other (no delusions) Suicidal: Ideation (no SI) Homicidal: Ideation (no HI) Insight/Judgement Fair Remarks Thought process somewhat circumstantial, a little tangential at times. Speech a little bit rambling and slightly pressured. No abnormal motor movements noted. Labs Test 11/17/16 07:30 White Blood Count 6.8 TH/MM3 Red Blood Count 4.38 MIL/MM3 Hemoglobin 12.0 GM/DL Hematocrit 36.5 % Mean Corpuscular Volume 83.3 FL Mean Corpuscular Hemoglobin 27.4 PG Mean Corpuscular Hemoglobin 32.9 % Concent Red Cell Distribution Width 15.1 % Platelet Count 204 TH/MM3 Mean Platelet Volume 8.0 FL Neutrophils (%) (Auto) 60.8 % Lymphocytes (%) (Auto) 31.3 % Monocytes (%) (Auto) 6.5 % Eosinophils (%) (Auto) 0.8 % Basophils (%) (Auto) 0.6 % Neutrophils # (Auto) 4.1 TH/MM3 Lymphocytes # (Auto) 2.1 TH/MM3 Monocytes # (Auto) 0.4 TH/MM3 Eosinophils # (Auto) 0.1 TH/MM3 Basophils # (Auto) 0.0 TH/MM3 CBC Comment DIFF FINAL Differential Comment Sodium Level 138 MEQ/L Potassium Level 4.1 MEQ/L Chloride Level 102 MEQ/L Carbon Dioxide Level 28.2 MEQ/L Anion Gap 8 MEQ/L Blood Urea Nitrogen 10 MG/DL Creatinine 1.15 MG/DL Estimat Glomerular Filtration 64 ML/MIN Rate Random Glucose 101 MG/DL Calcium Level 8.7 MG/DL Total Bilirubin 0.4 MG/DL Aspartate Amino Transf 20 U/L (AST/SGOT) Alanine Aminotransferase 30 U/L (ALT/SGPT) Alkaline Phosphatase 71 U/L Total Protein 7.2 GM/DL Albumin 3.2 GM/DL Triglycerides Level 80 MG/DL Cholesterol Level 129 MG/DL LDL Cholesterol 65 MG/DL HDL Cholesterol 47.8 MG/DL Cholesterol/HDL Ratio 2.69 RATIO Thyroid Stimulating Hormone 0.346 uIU/ML 3rd Gen Labs reviewed. I note that the patient's TSH is slightly low. Vitals/IOs Vital Signs Date Time Temp Pulse Resp B/P Pulse Ox O2 Delivery O2 Flow Rate FiO2 11/17/16 06:03 97.7 66 18 156/72 98 Assessment & Plan Problem List: (1) Bipolar disorder ICD Code: F31.9 Assessment & Plan Continue Depakote as ordered. Patient would like to be on an antidepressant, particularly Cymbalta after a discussion, and I will initiate this at his preference although we will need to monitor to make sure it does not exacerbate his hypomania. I will titrate his Seroquel to try to compensate for additional mood stabilization. Plan to check a Depakote level Sunday. Hospitalist consultation pending. Continue other medications and care as ordered. Justification for Cont. Inpt. Risk for decompensation pending psychiatric stabilization. Medication changes in process. Discharge Planning Pending psychiatric stabilization. Request HC Surrog/Guard Advoc?: No Problem Qualifiers (1) Bipolar disorder: Qualified Code: F31.0 - Bipolar affective disorder, current episode hypomanic Sabas Fermin MD Nov 17, 2016 10:48
[2016-11-17] MEDS ORDERED: PADIMATE (CHAPSTICK) 4.5 GM TUBE TOP PRN (12:00)
[2016-11-17] MEDS ORDERED: GLUCAGON 1 MG/ML VIAL OTHER PRN (13:45)
[2016-11-17] MEDS ORDERED: DEXTROSE 50% IN WATER 50 ML VIAL(D50) IV PUSH PRN (13:45)
--- NOTE | 2016-11-17 13:58 | PD.CONS ---
[facility] Consult Requested By Psychiatric team Reason for Consult Assist in management of medical condition Primary Care Physician Unknown Diagnoses: History of Present Illness This 61-year-old male patient with a past medical history which includes bipolar , diabetes mellitus diet controlled, hypertension hyperlipidemia. Patient recently transferred from [facility] to inpatient psychiatric center. We have been consulted for assistance with management of medical condition. Patient reports that he had a heart attack last week is why he was in the hospital and review of medical record patient was admitted initially admitted to [facility] with chest pain rule out ACS. Patient did have a cardiac catheterization at this time at that time and there was no significant blockages found. No stents were placed. Patient reports feeling well at this time does appear somewhat of a poor historian and tangential in speech. Patient offers no medical complaints at that time denies chest pain shortness of breath fevers chills nausea vomiting diarrhea constipation. Review of Systems Except as stated in HPI: all other systems reviewed are Neg Past Family Social History Allergies: Coded Allergies: Codeine (Verified Allergy, Severe, Nausea/Vomiting, 11/22/16) Mellaril (Verified Allergy, Severe, Nausea/Vomiting, 11/22/16) Past Medical History bipolar, diabetes mellitus diet controlled, hypertension hyperlipidemia. Past Surgical History Recent cardiac catheterization, right Achilles tendon surgery, tonsillectomy Reported Medications Metformin (Metformin HCl) 500 Mg Tab 500 Mg PO DAILY With a meal Protonix (Pantoprazole Sodium) 40 Mg Tab 40 Mg PO DAILY Trazodone (Trazodone HCl) 50 Mg Tab 100 Mg PO HS Phenergan (Promethazine HCl) 25 Mg Tab 25 Mg PO Q6H PRN Chlorthalidone 25 Mg Tab 25 Mg PO DAILY Venlafaxine ER 24 HR (Venlafaxine HCl) 75 Mg Cap 75 Mg PO DAILY Amlodipine (Amlodipine Besylate) 2.5 Mg Tab 2.5 Mg PO DAILY Potassium Chloride ER (Potassium Chloride) 10 Meq Cap 10 Meq PO DAILY Zofran Odt (Ondansetron Odt) 4 Mg Tab 4 Mg SL Q6HR PRN Divalproex DR (Divalproex Sodium) 250 Mg Tabdr 500 Mg PO HS Seroquel (Quetiapine Fumarate) 200 Mg Tab 200 Mg PO HS Active Ordered Medications Current Medications Medications (Trade) Dose Ordered Sig/Al Route Start Time Stop Time Status Last Admin (Ativan) 0.5 mg Q12H PRN PO 11/16/16 16:45 (Ativan Inj) 0.5 mg Q12H PRN IM 11/16/16 16:45 (Benadryl) 50 mg HS PRN PO 11/16/16 16:45 (Tylenol) 650 mg Q4H PRN PO 11/16/16 16:45 (Milk Of Magnesia Liq) 30 ml DAILY PRN PO 11/16/16 16:45 (Mag-Al Plus Susp Liq) 30 ml Q6H PRN PO 11/16/16 16:45 (Habitrol 21 Mg Patch.24 Hr) 1 patch DAILY T-DERMAL 11/16/16 17:00 (Cogentin) 1 mg Q12H PRN PO 11/16/16 16:45 (Cogentin Inj) 1 mg Q12H PRN IM 11/16/16 16:45 Miscellaneous Information 1 DAILY T-DERMAL 11/17/16 09:00 (Ecotrin Ec) 81 mg DAILY PO 11/17/16 09:00 11/17/16 08:45 (Lipitor) 20 mg HS PO 11/16/16 21:00 (Theragran) 1 tab DAILY PO 11/17/16 09:00 11/17/16 08:45 (Depakote Er) 750 mg HS PO 11/16/16 21:00 11/16/16 20:32 (Desyrel) 300 mg HS PO 11/16/16 21:00 11/16/16 20:32 (Lopressor) 25 mg Q12HR PO 11/16/16 21:00 11/17/16 08:46 (Cymbalta Dr) 20 mg BID PO 11/17/16 21:00 (Chapstick) 1 applic UNSCH PRN TOP 11/17/16 12:00 (SEROquel) 100 mg BID PO 11/17/16 21:00 Family History Reports mother and father both had CAD started in their 70s Social History He reports anywhere from a few cigarettes to one pack cigarettes per day is unable to give exact numbers. Patient reports he quit drinking 25+ years ago and denies illicit drug use Physical Exam Vital Signs Vital Signs Date Time Temp Pulse Resp B/P Pulse Ox O2 Delivery O2 Flow Rate FiO2 11/17/16 06:03 97.7 66 18 156/72 98 11/16/16 15:54 97.7 53 18 123/59 Physical Exam GENERAL: This is a well-nourished, well-developed patient, in no apparent distress- tangential in speech SKIN: No rashes, ecchymoses or lesions. Cool and dry. HEAD: Atraumatic. Normocephalic. No temporal or scalp tenderness. EYES: Extraocular motions intact. No scleral icterus. No injection or drainage. CARDIOVASCULAR: Regular rate and rhythm with 2/6 systolic murmur RESPIRATORY: Clear to auscultation. Breath sounds equal bilaterally. No wheezes , rales, or rhonchi. GASTROINTESTINAL: Abdomen soft, non-tender, nondistended. No guarding. MUSCULOSKELETAL: Extremities without clubbing, cyanosis, or edema. No joint tenderness, effusion, or edema noted. No calf tenderness. Negative Homans sign bilaterally. NEUROLOGICAL: Awake and alert. No focal deficits appreciated. Motor and sensory grossly within normal limits. Five out of 5 muscle strength in all muscle groups. Normal speech. Laboratory Laboratory Tests Test 11/17/16 07:30 White Blood Count 6.8 Red Blood Count 4.38 Hemoglobin 12.0 Hematocrit 36.5 Mean Corpuscular Volume 83.3 Mean Corpuscular Hemoglobin 27.4 Mean Corpuscular Hemoglobin 32.9 Concent Red Cell Distribution Width 15.1 Platelet Count 204 Mean Platelet Volume 8.0 Neutrophils (%) (Auto) 60.8 Lymphocytes (%) (Auto) 31.3 Monocytes (%) (Auto) 6.5 Eosinophils (%) (Auto) 0.8 Basophils (%) (Auto) 0.6 Neutrophils # (Auto) 4.1 Lymphocytes # (Auto) 2.1 Monocytes # (Auto) 0.4 Eosinophils # (Auto) 0.1 Basophils # (Auto) 0.0 CBC Comment DIFF FINAL Differential Comment Sodium Level 138 Potassium Level 4.1 Chloride Level 102 Carbon Dioxide Level 28.2 Anion Gap 8 Blood Urea Nitrogen 10 Creatinine 1.15 Estimat Glomerular Filtration 64 Rate Random Glucose 101 Calcium Level 8.7 Total Bilirubin 0.4 Aspartate Amino Transf 20 (AST/SGOT) Alanine Aminotransferase 30 (ALT/SGPT) Alkaline Phosphatase 71 Total Protein 7.2 Albumin 3.2 Triglycerides Level 80 Cholesterol Level 129 LDL Cholesterol 65 HDL Cholesterol 47.8 Cholesterol/HDL Ratio 2.69 Thyroid Stimulating Hormone 0.346 3rd Gen Assessment and Plan Assessment and Plan This 61-year-old male patient with a past medical history which includes bipolar , diabetes mellitus diet controlled, hypertension hyperlipidemia. Patient recently transferred from [facility] to inpatient psychiatric center. We have been consulted for assistance with management of medical condition. Patient reports that he had a heart attack last week is why he was in the hospital and review of medical record patient was admitted initially admitted to [facility] with chest pain rule out ACS. Per faxed records patient did have a cardiac catheterization at that time at that time and there was no significant blockages found. No stents were placed. Diabetes mellitus patient has hemoglobin A1c 10/24/2016 06.7 Home medication reconciliation reports patient was taking metformin unable to restart metformin as patient's current creatinine clearance is 26.6 Initiate Accu-Cheks before meals at bedtime with low-dose sliding scale insulin coverage start diabetic diet Continue to monitor blood sugars and for signs and symptoms of hypoglycemia Hypertension patient was taking Norvasc 2.5 mg by mouth daily at home department reconciliation will continue this medication Monitor blood pressure trend Lipid panel revealed LDL 65 no further treatment at this time Recent chest pain with cardiac catheterization negative for significant blockages Recommend patient maintain a healthy lifestyle with exercise and heart healthy/ diabetic diet Also recommend patient abstain from tobacco use Tobacco abuse patient counseled encouraged to abstain Refused nicotine patch DVT prophylaxis patient is ambulatory Discussed plan of care with patient and nursing Written by Sophie Pemberton, acting as scribe for Dr. Martinez on 11/17/16 at 13:56. Attending Statement The documentation accurately reflects the work performed [id number] by me on at 13:56. Sophie Pemberton Nov 17, 2016 13:58 James Williamson MD Nov 23, 2016 22:26
[2016-11-17] MEDS ORDERED: PILL SPLITTER OTHER PRN (14:00)
[2016-11-17 15:47] LABS: HEMOGLOBIN A1a 1.3 %; HEMOGLOBIN A1b 1.7 %; HEMOGLOBIN Ao 84.5 %; HEMOGLOBIN LA1C 1.9 %; HEMOGLOBIN P3 3.6 %
[2016-11-17] MEDS: INSULIN ASPART SUPPLEMENTAL SCALE SQ SCH ×2 (16:00→20:18)
[2016-11-17] MEDS: traZODone HCL 100 MG TAB PO SCH (20:11)
[2016-11-17] MEDS: QUEtiapine FUMARATE 100 MG TAB PO SCH (20:11)
[2016-11-17] MEDS: DIVALPROEX SODIUM E.R. 250 MG TAB PO SCH (20:11)
[2016-11-17] MEDS: ATORVASTATIN 20 MG TAB PO SCH (20:11)
[2016-11-17] MEDS: DULoxetine HCl DR 20 MG CAP PO SCH (20:17)
[2016-11-17 22:43] VITALS: BP 123/59; PULSE 53; RESP 16; TEMP 97.7; O2SAT 99
[2016-11-18 06:19] VITALS: BP 105/64; PULSE 79; RESP 18; TEMP 97.4; O2SAT 99
[2016-11-18] MEDS: INSULIN ASPART SUPPLEMENTAL SCALE SQ SCH ×4 (06:43→20:45)
[2016-11-18 07:59] LABS: FREE T4 1.07 NG/DL (0.76-1.46)
[2016-11-18] MEDS: QUEtiapine FUMARATE 100 MG TAB PO SCH ×2 (08:17→21:10)
[2016-11-18] MEDS: NICOTINE 21 MG/24 HR PATCH T-DERMAL SCH (08:17)
[2016-11-18] MEDS: amLODIPine BESYLATE 5 MG TAB PO SCH (08:17)
[2016-11-18] MEDS: DULoxetine HCl DR 20 MG CAP PO SCH ×2 (08:17→21:11)
[2016-11-18] MEDS: MULTIVITAMIN TAB PO SCH (08:17)
[2016-11-18] MEDS: REMOVE OLD PATCH T-DERMAL SCH (08:17)
[2016-11-18] MEDS: ASPIRIN EC 81 MG TABEC PO SCH (08:17)
[2016-11-18] MEDS: METOPROLOL TARTRATE 25 MG TAB PO SCH ×2 (08:17→21:11)
--- NOTE | 2016-11-18 15:37 | HHI.PYPN ---
Subjective Remarks Patient was seen and case discussed with nursing. Patient is thin and disheveled. Per nursing is eating well. Per nursing irritable this morning cursing staff. When asked about it patient gets loud but says he doesn't like noise in the morning. Remains grandiose plans the by hotel changes and help the hopeless. Says he is sick of being homeless. Compliant with medications Objective Alert: Yes [place]: Person, Place, Date Mood: Other (mildly elevated) Affect: Labile Memory Intact: Comment (intact) Hallucinations: Other (no AVH) Delusions: No Delusion Type: Other (no delusions) Suicidal: Ideation (no SI) Homicidal: Ideation (no HI) Insight/Judgement Poor Labs Test 11/18/16 06:49 Free Thyroxine 1.07 NG/DL Thyroid Stimulating Hormone 0.394 uIU/ML 3rd Gen Vitals/IOs Vital Signs Date Time Temp Pulse Resp B/P Pulse Ox O2 Delivery O2 Flow Rate FiO2 11/18/16 06:19 97.4 79 18 105/64 99 Assessment & Plan Problem List: (1) Bipolar disorder ICD Code: F31.9 Assessment & Plan Continue current treatment plan Justification for Cont. Inpt. Patient will decompensate in a less restrictive setting Request HC Surrog/Guard Advoc?: No Problem Qualifiers (1) Bipolar disorder: Qualified Code: F31.0 - Bipolar affective disorder, current episode hypomanic Hans Oseguera DO Nov 18, 2016 15:37
[2016-11-18 19:44] VITALS: BP 104/57; PULSE 57; RESP 18; TEMP 97.5; O2SAT 100
[2016-11-18] MEDS: ATORVASTATIN 20 MG TAB PO SCH (21:11)
[2016-11-18] MEDS: traZODone HCL 100 MG TAB PO SCH (21:11)
[2016-11-18] MEDS: DIVALPROEX SODIUM E.R. 250 MG TAB PO SCH (21:11)
[2016-11-19 05:37] VITALS: BP 125/66; PULSE 65; RESP 17; TEMP 98.9; O2SAT 100
[2016-11-19] MEDS: INSULIN ASPART SUPPLEMENTAL SCALE SQ SCH (06:14)
[2016-11-19] MEDS: DULoxetine HCl DR 20 MG CAP PO SCH ×3 (09:00→20:30)
[2016-11-19] MEDS: METOPROLOL TARTRATE 25 MG TAB PO SCH ×2 (09:00→20:30)
[2016-11-19] MEDS: QUEtiapine FUMARATE 100 MG TAB PO SCH ×3 (09:00→20:30)
[2016-11-19] MEDS: REMOVE OLD PATCH T-DERMAL SCH (09:00)
[2016-11-19] MEDS: NICOTINE 21 MG/24 HR PATCH T-DERMAL SCH (09:00)
[2016-11-19] MEDS: ASPIRIN EC 81 MG TABEC PO SCH (09:39)
[2016-11-19] MEDS: MULTIVITAMIN TAB PO SCH (09:40)
[2016-11-19] MEDS: amLODIPine BESYLATE 5 MG TAB PO SCH (09:40)
--- NOTE | 2016-11-19 11:15 | HHI.PR ---
Subjective Remarks Follow-up diabetes mellitus. Patient seen in inpatient psychiatric day room appears to be in no acute distress. Patient reports feeling well overall offers no specific complaints at this time. Patient denies chest pain shortness of breath nausea vomiting diarrhea constipation fevers or chills. Objective Vitals Vital Signs Date Time Temp Pulse Resp B/P Pulse Ox O2 Delivery O2 Flow Rate FiO2 11/19/16 05:37 98.9 65 17 125/66 100 11/18/16 19:44 97.5 57 18 104/57 100 Result Diagram: 11/17/1672911/17/1630 Objective Remarks GENERAL: This is a well-nourished, well-developed patient, in no apparent distress- tangential in speech SKIN: No rashes, ecchymoses or lesions. Cool and dry. HEAD: Atraumatic. Normocephalic. No temporal or scalp tenderness. EYES: Extraocular motions intact. No scleral icterus. No injection or drainage. CARDIOVASCULAR: Regular rate and rhythm with 2/6 systolic murmur RESPIRATORY: Clear to auscultation. Breath sounds equal bilaterally. No wheezes , rales, or rhonchi. GASTROINTESTINAL: Abdomen soft, non-tender, nondistended. No guarding. MUSCULOSKELETAL: Extremities without clubbing, cyanosis, or edema. No joint tenderness, effusion, or edema noted. No calf tenderness. Negative Homans sign bilaterally. NEUROLOGICAL: Awake and alert. No focal deficits appreciated. Motor and sensory grossly within normal limits. Five out of 5 muscle strength in all muscle groups. Normal speech. A/P Assessment and Plan This 61-year-old male patient with a past medical history which includes bipolar , diabetes mellitus diet controlled, hypertension hyperlipidemia. Patient recently transferred from [facility] to inpatient psychiatric center. We have been consulted for assistance with management of medical condition. Patient reports that he had a heart attack last week is why he was in the hospital and review of medical record patient was admitted initially admitted to [facility] with chest pain rule out ACS. Per faxed records patient did have a cardiac catheterization at that time at that time and there was no significant blockages found. No stents were placed. Diabetes mellitus patient has hemoglobin A1c 6.5- diet controlled Home medication reconciliation reports patient was taking metformin unable to restart metformin as patient's current creatinine clearance is 26.6- patient reports he was not taking metformin at home either. DC Accu-Cheks before meals at bedtime with low-dose sliding scale insulin coverage- patient has not required any coverage Continue diabetic diet Hypertension patient was taking Norvasc 2.5 mg by mouth daily at home department reconciliation will continue this medication Monitor blood pressure trend Lipid panel revealed LDL 65 no further treatment at this time Recent chest pain with cardiac catheterization negative for significant blockages Recommend patient maintain a healthy lifestyle with exercise and heart healthy/ diabetic diet Also recommend patient abstain from tobacco use Tobacco abuse patient counseled encouraged to abstain Refused nicotine patch DVT prophylaxis patient is ambulatory Discussed plan of care with patient and nursing Patient medically stable at this time will sign off. If patient's condition changes or further assistance is needed please reconsult Recommend patient remain on Norvasc 2.5 mg daily for hypertension and continues on a diabetic/heart healthy diet after discharge Recommend patient continue aspirin and Lipitor after discharge Recommend patient follow up with PCP after discharge. Written by Sophie Pemberton, acting as scribe for Dr. Martinez on 11/19/16 at 11:14. Attending Statement The documentation accurately reflects the work performed [id number] by ks on at 11:14 Sophie Pemberton Nov 19, 2016 11:15 James Williamson MD Nov 23, 2016 22:57
--- NOTE | 2016-11-19 16:28 | HHI.PYPN ---
Subjective Remarks Patient was seen and case discussed with nursing. Patient describes a discharge plan from the facility in [place] and his stay there for 2 weeks. He is pleasant and cooperative with this exam. No psychotic symptoms were elicited today. Eating and sleeping well. Compliant with medications Objective Alert: Yes [place]: Person, Place, Date Mood: Other (mildly elevated) Affect: Labile Memory Intact: Comment (intact) Hallucinations: Other (no AVH) Delusions: No Delusion Type: Other (no delusions) Suicidal: Ideation (no SI) Homicidal: Ideation (no HI) Insight/Judgement Poor Vitals/IOs Vital Signs Date Time Temp Pulse Resp B/P Pulse Ox O2 Delivery O2 Flow Rate FiO2 11/19/16 05:37 98.9 65 17 125/66 100 Assessment & Plan Problem List: (1) Bipolar disorder ICD Code: F31.9 Assessment & Plan Continue current treatment plan Justification for Cont. Inpt. Patient will decompensate in a less restrictive setting Request HC Surrog/Guard Advoc?: No Problem Qualifiers (1) Bipolar disorder: Qualified Code: F31.0 - Bipolar affective disorder, current episode hypomanic Hans Oseguera DO Nov 19, 2016 16:28
[2016-11-19 17:11] VITALS: BP 117/58; PULSE 63; RESP 18; TEMP 97.6; O2SAT 98
[2016-11-19] MEDS: traZODone HCL 100 MG TAB PO SCH (20:30)
[2016-11-19] MEDS: ATORVASTATIN 20 MG TAB PO SCH (20:30)
[2016-11-19] MEDS: DIVALPROEX SODIUM E.R. 250 MG TAB PO SCH (20:30)
[2016-11-20 05:55] VITALS: BP 130/60; PULSE 60; RESP 17; TEMP 97.2; O2SAT 96
[2016-11-20] MEDS: amLODIPine BESYLATE 5 MG TAB PO SCH (08:30)
[2016-11-20] MEDS: DULoxetine HCl DR 20 MG CAP PO SCH (08:30)
[2016-11-20] MEDS: ASPIRIN EC 81 MG TABEC PO SCH (08:30)
[2016-11-20] MEDS: MULTIVITAMIN TAB PO SCH (08:30)
[2016-11-20] MEDS: METOPROLOL TARTRATE 25 MG TAB PO SCH (08:30)
[2016-11-20] MEDS: NICOTINE 21 MG/24 HR PATCH T-DERMAL SCH (09:00)
[2016-11-20] MEDS: QUEtiapine FUMARATE 100 MG TAB PO SCH (09:00)
[2016-11-20] MEDS: REMOVE OLD PATCH T-DERMAL SCH (09:00)
[2016-11-20] MEDS ORDERED: ASPI81TA11 PO (10:15)
[2016-11-20] MEDS ORDERED: DULO20 PO (10:15)
[2016-11-20] MEDS ORDERED: TRAZ50TA12 PO (10:15)
[2016-11-20] MEDS ORDERED: DIVA250ER PO (10:15)
[2016-11-20] MEDS ORDERED: METO25TA3 PO (10:15)
[2016-11-20] MEDS ORDERED: LIPI20TA PO (10:15)
[2016-11-20] MEDS ORDERED: QUET1TAB8 PO (10:15)
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
== END 2016-11-20 14:15 | disposition home or self-care (01) | DRG 885 ==
LOC: H270 13:37
PROVIDERS: ADMIT Psychiatry & Neurology Psychiatry; ATTEND Psychiatry & Neurology Psychiatry
DX: F31.71 Bipolar disorder, in partial remission, most recent episode hypomanic (principal); E11.9 Type 2 diabetes mellitus without complications; I10 Essential (primary) hypertension; F17.210 Nicotine dependence, cigarettes, uncomplicated; Z81.8 Family history of other mental and behavioral disorders; E78.5 Hyperlipidemia, unspecified; Z59.0 Homelessness
CPT/HCPCS: 80053; 80061; 80164; 82140; 82948; 83036; 84439; 84443; 85025

== ENCOUNTER 2016-11-22 23:16 | Emergency (ER) | payer MEDICARE ==
[~2016-11-22 23:16] MED LIST changes: +ASPI81TA11 PO; -CHLO25TA2 PO; +DIVA250ER PO; -DIVA250T PO; +DULO20 PO; +LIPI20TA PO; -METF500T PO; +METO25TA3 PO; -POTA10CA PO; +QUET1TAB8 PO; -SERO200T PO; -VENL75CA44 PO; -ZOFR4TAB3 SL
[2016-11-22 23:32] VITALS: BP 148/66; PULSE 68; RESP 16; TEMP 97.8; O2SAT 100
[2016-11-22] MEDS ORDERED: SODIUM CHLORIDE 0.9% FLUSH 5 ML FLUSH IVF PRN (23:45)
--- NOTE | 2016-11-23 00:26 | RADRPT ---
EXAM DATE/TIME: 11/22/2016 23:32 [facility] COMPARISON: CHEST SINGLE AP, October 22, 2016, 20:05. INDICATIONS : Chest pain. MEDICAL HISTORY : Diabetes mellitus type II. SURGICAL HISTORY : Tonsillectomy. ENCOUNTER: Initial ACUITY: 1 day PAIN SCORE: 6/10 LOCATION: Bilateral chest FINDINGS: Again seen are multiple calcified pleural plaques. No new consolidation or effusion. No pneumothorax. Heart size within normal limits. Tortuous aorta. CONCLUSION: 1. Multiple calcified pleural plaques. No new consolidation or effusion. Melo Gilbert MD on November 23, 2016 at 0:19 Board Certified Radiologist. This report was verified electronically.
[2016-11-23] MEDS ORDERED: LORazepam 2 MG/ML VIAL ONE (00:44)
[2016-11-23 00:55] LABS: AUTOMATED NEUTROPHIL # 4.6 TH/MM3 (1.8-7.7); BASOPHIL % 0.6 % (0.0-2.0); EOSINOPHIL # 0.1 TH/MM3 (0-0.4); EOSINOPHIL % 0.8 % (0.0-4.0); HEMATOCRIT 33.6 % (39.0-51.0); HEMO FLAGS DIFF FINAL; LYMPH % 30.8 % (9.0-44.0); LYMPHOCYTE # 2.5 TH/MM3 (1.0-4.8); MEAN CELL VOLUME 82.5 FL (80.0-100.0); MEAN CORPUSCULAR HEMOGLOBIN 27.9 PG (27.0-34.0); MEAN CORPUSCULAR HGB CONC 33.9 % (32.0-36.0); MONO % 9.8 % (0.0-8.0); PLATELET COUNT 166 TH/MM3 (150-450); RED BLOOD COUNT 4.07 MIL/MM3 (4.50-5.90); RED CELL DISTRIBUTION WIDTH 15.4 % (11.6-17.2)
[2016-11-23 00:59] LABS: AMPHETAMINE, URINE NEG (NEG); BARBITURATES, URINE NEG (NEG); COCAINE, URINE NEG (NEG)
[2016-11-23 01:12] LABS: APTT (PATIENT) 25.7 SEC (24.3-30.1); PROTHROMBIN TIME - PATIENT 10.8 SEC (9.8-11.6)
[2016-11-23 01:18] LABS: ALT (GPT) 28 U/L (12-78); ANION GAP 12 MEQ/L (5-15); AST (GOT) 40 U/L (15-37); BICARBONATE 22.8 MEQ/L (21.0-32.0); BLOOD UREA NITROGEN 14 MG/DL (7-18); CHLORIDE 106 MEQ/L (98-107); GLOMERULAR FILTRATION RATE 60 ML/MIN (>89); MAGNESIUM 2.1 MG/DL (1.5-2.5); POTASSIUM 3.7 MEQ/L (3.5-5.1); SODIUM (NA) 141 MEQ/L (136-145)
[2016-11-23 01:21] LABS: ALKALINE PHOSPHATASE 63 U/L (45-117); CREATINE KINASE 680 U/L (39-308); TOTAL BILIRUBIN ADULT 0.5 MG/DL (0.2-1.0)
[2016-11-23 01:34] LABS: CKMB 9.3 NG/ML (0.5-3.6)
[2016-11-23] MEDS ORDERED: SODIUM CHLOR 0.9% 1000 ML INJ 1,000 ML IV ONE (01:45)
[2016-11-23] MEDS ORDERED: LORazepam 2 MG/ML VIAL IV PUSH ONE (01:45)
[2016-11-23 05:00] VITALS: BP 150/71; PULSE 58; RESP 18; O2SAT 98
--- NOTE | 2016-11-23 05:03 | PD ---
HPI Chief Complaint: GI Complaint Time Seen by Provider: 23:37 Travel History International Travel<30 days: No Contact w/Intl Traveler<30days: No Traveled to known affect area: No History of Present Illness HPI Patient is a 61 year old male who comes in by EMS after complaining of heart palpitations and chest pain. Patient has extensive psych history and was just discharged last week. He says he has not been taking his medications since being discharged. Patients is very inappropriate talking about "wanting to have sex" and his "erection." He says he never had chest pain. He is concerned that he ate some bad food for breakfast because he vomited 4 times. Patient also says that he gets so angry that sometimes he wants to kill someone. He denies any hallucinations. PFSH Past Medical History Blood Disorders: No Bipolar Disorder: Yes Anxiety: Yes Depression: Yes Cancer: No Cardiovascular Problems: Yes Diabetes: No Diminished Hearing: No Endocrine: Yes Genitourinary: No Headaches: No Immune Disorder: No Musculoskeletal: No Neurologic: Yes Psychiatric: Yes (Bipolar) Reproductive: No Respiratory: No Seizures: No Social History Alcohol Use: No Tobacco Use: No Substance Use: No Allergies-Medications (Allergen,Severity, Reaction): Coded Allergies: Codeine (Verified Allergy, Severe, Nausea/Vomiting, 11/22/16) Mellaril (Verified Allergy, Severe, Nausea/Vomiting, 11/22/16) Reported Meds & Prescriptions Reported Meds & Active Scripts Active Trazodone (Trazodone HCl) 50 Mg Tab 300 Mg PO HS 15 Days Quetiapine (Quetiapine Fumarate) 100 Mg Tab 100 Mg PO BID 15 Days Metoprolol Tartrate 25 Mg Tab 25 Mg PO Q12HR [address] (Duloxetine HCl) 20 Mg Capdr 20 Mg PO BID 15 Days Depakote ER (Divalproex Sodium) 250 Mg Emily 750 Mg PO HS 15 Days Lipitor (Atorvastatin Calcium) 20 Mg Tab 20 Mg PO HS 15 Days Aspirin EC (Aspirin) 81 Mg Tabdr 81 Mg PO DAILY 15 Days Protonix (Pantoprazole Sodium) 40 Mg Tab 40 Mg PO DAILY Phenergan (Promethazine HCl) 25 Mg Tab 25 Mg PO Q6H PRN Reported Amlodipine (Amlodipine Besylate) 2.5 Mg Tab 2.5 Mg PO DAILY Review of Systems Except as stated in HPI: all other systems reviewed are Neg General / Constitutional: No: Fever, Chills HENT: No: Headaches, Lightheadedness Cardiovascular: No: Chest Pain or Discomfort Respiratory: No: Shortness of Breath Gastrointestinal: Positive: Nausea, Vomiting, No: Abdominal Pain Skin: No Rash, No Change in Pigmentation Neurologic: No: Weakness, Dizziness Physical Exam Narrative GENERAL: Awake and alert, in no acute distress, tearful SKIN: Warm and dry. HEAD: Atraumatic. Normocephalic. EYES: Pupils equal and round. No scleral icterus. Extraocular movements intact. ENT: Mucous membranes pink and moist. NECK: Trachea midline. No JVD. CARDIOVASCULAR: Regular rate and rhythm. No murmur appreciated. RESPIRATORY: No accessory muscle use. Clear to auscultation. Breath sounds equal bilaterally. GASTROINTESTINAL: Abdomen soft, non-tender, nondistended. MUSCULOSKELETAL: No obvious deformities. No clubbing. No cyanosis. No edema. NEUROLOGICAL: Awake and alert. No obvious cranial nerve deficits. Motor grossly within normal limits. PSYCHIATRIC: Tearful, inappropriate. Pressured speech. Data Data Last Documented VS Vital Signs Date Time Temp Pulse Resp B/P Pulse Ox O2 Delivery O2 Flow Rate FiO2 11/23/16 06:16 66 20 128/60 100 Room Air 11/22/16 23:32 97.8 Orders Ckmb (Isoenzyme) Profile (11/22/16 23:37) Complete Blood Count With Diff (11/22/16 23:37) Comprehensive Metabolic Panel (11/22/16 23:37) Magnesium (Mg) (11/22/16 23:37) Prothrombin Time / Inr (Pt) (11/22/16 23:37) Act Partial Throm Time (Ptt) (11/22/16 23:37) Troponin I (11/22/16 23:37) Chest, Single Ap (11/22/16 23:37) Ecg Monitoring (11/22/16 23:37) Bilateral Bp Monitoring (11/22/16 23:37) Iv Access Insert/Monitor (11/22/16 23:37) Oximetry (11/22/16 23:37) Oxygen Administration (11/22/16 23:37) Sodium Chloride 0.9% Flush (Ns Flush) (11/22/16 23:45) Drug Screen, Random Urine (11/22/16 23:37) Lorazepam Inj (Ativan Inj) (11/23/16 00:44) CKMB (11/22/16 23:40) CKMB% (11/22/16 23:40) Sodium Chlor 0.9% 1000 Ml Inj (Ns 1000 M (11/23/16 01:45) Lorazepam Inj (Ativan Inj) (11/23/16 01:45) Psych Screen (11/23/16 03:14) Troponin I (11/23/16 03:14) Diet Diabetic (11/23/16 Breakfast) Labs Laboratory Tests Test 11/22/16 11/22/16 11/23/16 23:40 23:50 03:25 White Blood Count 8.0 TH/MM3 Red Blood Count 4.07 MIL/MM3 Hemoglobin 11.4 GM/DL Hematocrit 33.6 % Mean Corpuscular Volume 82.5 FL Mean Corpuscular Hemoglobin 27.9 PG Mean Corpuscular Hemoglobin 33.9 % Concent Red Cell Distribution Width 15.4 % Platelet Count 166 TH/MM3 Mean Platelet Volume 9.0 FL Neutrophils (%) (Auto) 58.0 % Lymphocytes (%) (Auto) 30.8 % Monocytes (%) (Auto) 9.8 % Eosinophils (%) (Auto) 0.8 % Basophils (%) (Auto) 0.6 % Neutrophils # (Auto) 4.6 TH/MM3 Lymphocytes # (Auto) 2.5 TH/MM3 Monocytes # (Auto) 0.8 TH/MM3 Eosinophils # (Auto) 0.1 TH/MM3 Basophils # (Auto) 0.0 TH/MM3 CBC Comment DIFF FINAL Differential Comment Prothrombin Time 10.8 SEC Prothromb Time International 1.0 RATIO Ratio Activated Partial 25.7 SEC Thromboplast Time Sodium Level 141 MEQ/L Potassium Level 3.7 MEQ/L Chloride Level 106 MEQ/L Carbon Dioxide Level 22.8 MEQ/L Anion Gap 12 MEQ/L Blood Urea Nitrogen 14 MG/DL Creatinine 1.22 MG/DL Estimat Glomerular Filtration 60 ML/MIN Rate Random Glucose 99 MG/DL Calcium Level 8.3 MG/DL Magnesium Level 2.1 MG/DL Total Bilirubin 0.5 MG/DL Aspartate Amino Transf 40 U/L (AST/SGOT) Alanine Aminotransferase 28 U/L (ALT/SGPT) Alkaline Phosphatase 63 U/L Total Creatine Kinase 680 U/L Creatine Kinase MB 9.3 NG/ML Creatine Kinase MB % 1.4 % Troponin I LESS THAN 0.02 0.02 NG/ML NG/ML Total Protein 6.8 GM/DL Albumin 3.3 GM/DL Urine Opiates Screen NEG Urine Barbiturates Screen NEG Urine Amphetamines Screen NEG Urine Benzodiazepines Screen NEG Urine Cocaine Screen NEG Urine Cannabinoids Screen NEG MDM Medical Decision Making Medical Screen Exam Complete: Yes Emergency Medical Condition: Yes Medical Record Reviewed: Yes Interpretation(s) ECG shows left bundle-branch block. Differential Diagnosis Intoxication versus psychosis versus electrolyte abnormality versus ACS Narrative Course Patient is a 61-year-old male brought in by EMS originally due to chest pain. While here, he denies having chest pain. IV established, labs sent. Troponin 2 is negative. Patient continues to act psychotic. He was given 2 mg of Ativan for sedation. Patient to be seen by psychiatry and ruled out for ACS. Disposition per psychiatry. Diagnosis Primary Impression: Psychosis Qualified Code: F29 - Psychosis, unspecified psychosis type Additional Impression: Chest pain Qualified Code: R07.9 - Chest pain, unspecified type Condition: Deana García MD Nov 23, 2016 05:03
[2016-11-23 05:36] VITALS: BP 159/70; PULSE 68; RESP 20; O2SAT 100
[2016-11-23 06:16] VITALS: BP 128/60; PULSE 66; RESP 20; O2SAT 100
[2016-11-23 11:43] VITALS: BP 122/68; PULSE 62; RESP 16; TEMP 98.2
== END 2016-11-23 16:19 | disposition home or self-care (01) ==
LOC: NEPE 23:16 → NEPJ 11-23 16:19
DX: F29 Unspecified psychosis not due to a substance or known physiological condition (principal); R07.9 Chest pain, unspecified; F31.9 Bipolar disorder, unspecified; E11.9 Type 2 diabetes mellitus without complications; I44.7 Left bundle-branch block, unspecified; R11.2 Nausea with vomiting, unspecified
CPT/HCPCS: 71010; 80053; 80307; 82550; 82552; 83735; 84484; 85025; 85610; 85730; 96361; 96374; 99285; J7030; J2060

== ENCOUNTER 2016-11-25 20:37 | Emergency (ER) | payer MEDICARE, OTHER ==
[~2016-11-25] VITALS: Ht 185.4 cm; Wt 65.0 kg
[2016-11-25 21:08] VITALS: BP 125/74; PULSE 73; RESP 18; TEMP 98.6; O2SAT 100
--- NOTE | 2016-11-25 22:03 | PD ---
HPI Chief Complaint: Psychiatric Symptoms Time Seen by Provider: 22:03 Travel History International Travel<30 days: No Contact w/Intl Traveler<30days: No Traveled to known affect area: No History of Present Illness HPI 61-year-old male with a history of bipolar disorder, anxiety, depression and diabetes is brought to the emergency department under Serrano act for suicidal ideations. Per the Serrano act report the patient was noted to be walking in the middle of traffic stating he was trying to commit suicide. The patient states he has not slept in 2 weeks. States that he has been off of his medications for a while now. He denies any medical complaints. He denies any chest pain, shortness of breath, abdominal pain, nausea, vomiting, diarrhea, lightheadedness , dizziness. Denies any suicidal or homicidal ideations. Denies any attempts to harm himself. Denies any alcohol or drug use. No other complaints. PFSH Past Medical History Blood Disorders: No Bipolar Disorder: Yes Anxiety: Yes Depression: Yes Cancer: No Cardiovascular Problems: Yes Diabetes: No Diminished Hearing: No Endocrine: Yes Gastrointestinal Disorders: Yes (IBS, constipation) Genitourinary: No Headaches: No Immune Disorder: No Musculoskeletal: No Neurologic: Yes Psychiatric: Yes (Bipolar) Reproductive: No Respiratory: No Seizures: No Past Surgical History Other Surgery: Yes (ankle) Social History Alcohol Use: Yes (occasionally) Tobacco Use: Yes Substance Use: No Allergies-Medications (Allergen,Severity, Reaction): Coded Allergies: Codeine (Verified Allergy, Severe, Nausea/Vomiting, 11/22/16) Mellaril (Verified Allergy, Severe, Nausea/Vomiting, 11/22/16) Reported Meds & Prescriptions Reported Meds & Active Scripts Active Trazodone (Trazodone HCl) 50 Mg Tab 300 Mg PO HS 15 Days Quetiapine (Quetiapine Fumarate) 100 Mg Tab 100 Mg PO BID 15 Days Metoprolol Tartrate 25 Mg Tab 25 Mg PO Q12HR [address] (Duloxetine HCl) 20 Mg Capdr 20 Mg PO BID 15 Days Depakote ER (Divalproex Sodium) 250 Mg Emily 750 Mg PO HS 15 Days Lipitor (Atorvastatin Calcium) 20 Mg Tab 20 Mg PO HS 15 Days Aspirin EC (Aspirin) 81 Mg Tabdr 81 Mg PO DAILY 15 Days Protonix (Pantoprazole Sodium) 40 Mg Tab 40 Mg PO DAILY Phenergan (Promethazine HCl) 25 Mg Tab 25 Mg PO Q6H PRN Reported Amlodipine (Amlodipine Besylate) 2.5 Mg Tab 2.5 Mg PO DAILY Review of Systems Except as stated in HPI: all other systems reviewed are Neg Physical Exam Narrative GENERAL: Well-nourished and well-developed pleasant male patient in no acute distress who is nontoxic appearing. SKIN: Warm and dry. HEAD: Normocephalic and atraumatic. EYES: No injection, drainage, or hyphema noted. PERRLA. EOMI. ENT: No nasal drainage noted. Oropharynx is clear. NECK: Supple and the trachea is midline. CARDIOVASCULAR: Regular rate and rhythm. RESPIRATORY: Breath sounds are equal bilaterally with no accessory muscle use, wheezing, rhonchi, or crackles. GASTROINTESTINAL: Abdomen is soft, non-tender, and nondistended. MUSCULOSKELETAL: No obvious deformities, swelling, cyanosis, or ecchymosis is present throughout the upper and lower extremities. Patient has full range of motion without any signs of neurovascular compromise. NEUROLOGICAL: Awake, alert, and oriented. Normal speech and gait. Cranial nerves are grossly intact. Data Data Last Documented VS Vital Signs Date Time Temp Pulse Resp B/P Pulse Ox O2 Delivery O2 Flow Rate FiO2 11/25/16 21:08 98.6 73 18 125/74 100 Orders Psych Screen (11/25/16 21:21) Complete Blood Count With Diff (11/25/16 22:03) Comprehensive Metabolic Panel (11/25/16 22:03) Drug Screen, Random Urine (11/25/16 22:03) Alcohol (Ethanol) (11/25/16 22:03) Valproic Acid (Depakene) (11/25/16 22:12) MDM Medical Decision Making Medical Screen Exam Complete: Yes Emergency Medical Condition: Yes Differential Diagnosis Differential: Depression versus adjustment reaction versus anxiety versus PTSD versus psychosis NOS versus mood disorder NOS versus substance induced mood disorder versus ODD versus adjustment reaction versus schizophrenia versus bipolar disorder versus schizoaffective versus electrolyte abnormality Narrative Course Patient presents under a Serrano act. Physical examination and vital signs are essentially unremarkable. Patient has no medical complaints to report. Psych screen has been ordered. If the laboratory results are unremarkable, the patient will be medically cleared for psychiatric evaluation and disposition. Diagnosis Primary Impression: Bipolar disorder Qualified Code: F31.62 - Bipolar disorder, current episode mixed, moderate Elinor Costello Nov 25, 2016 22:03
[2016-11-26 00:12] LABS: AUTOMATED NEUTROPHIL # 4.4 TH/MM3 (1.8-7.7); BASOPHIL # 0.1 TH/MM3 (0-0.2); BASOPHIL % 1.1 % (0.0-2.0); EOSINOPHIL # 0.1 TH/MM3 (0-0.4); EOSINOPHIL % 1.3 % (0.0-4.0); HEMATOCRIT 31.7 % (39.0-51.0); HEMO FLAGS DIFF FINAL; LYMPH % 20.6 % (9.0-44.0); LYMPHOCYTE # 1.4 TH/MM3 (1.0-4.8); MEAN CELL VOLUME 84.1 FL (80.0-100.0); MEAN CORPUSCULAR HEMOGLOBIN 28.8 PG (27.0-34.0); MEAN CORPUSCULAR HGB CONC 34.2 % (32.0-36.0); MONO % 11.3 % (0.0-8.0); NEUT % 65.7 % (16.0-70.0); PLATELET COUNT 195 TH/MM3 (150-450); RED BLOOD COUNT 3.76 MIL/MM3 (4.50-5.90); RED CELL DISTRIBUTION WIDTH 15.7 % (11.6-17.2); WHITE BLOOD COUNT 6.7 TH/MM3 (4.0-11.0)
[2016-11-26 00:16] LABS: AMPHETAMINE, URINE NEG (NEG); BARBITURATES, URINE NEG (NEG); COCAINE, URINE NEG (NEG)
[2016-11-26 00:41] LABS: ALT (GPT) 38 U/L (12-78); ANION GAP 10 MEQ/L (5-15); AST (GOT) 54 U/L (15-37); BICARBONATE 24.7 MEQ/L (21.0-32.0); BLOOD UREA NITROGEN 10 MG/DL (7-18); CHLORIDE 109 MEQ/L (98-107); GLOMERULAR FILTRATION RATE 66 ML/MIN (>89); POTASSIUM 3.1 MEQ/L (3.5-5.1); SODIUM (NA) 144 MEQ/L (136-145)
[2016-11-26 00:44] LABS: ALKALINE PHOSPHATASE 67 U/L (45-117); TOTAL BILIRUBIN ADULT 0.6 MG/DL (0.2-1.0)
[2016-11-26] MEDS ORDERED: POTASSIUM CHLORIDE 20 MEQ CONTROLLED RELEASE TAB PO ONE (01:45)
[2016-11-26 01:59] VITALS: BP 122/74; PULSE 88; RESP 18; O2SAT 98
[2016-11-26 02:17] VITALS: BP 137/66; PULSE 73; RESP 18; TEMP 98.6; O2SAT 96
[2016-11-26 06:49] VITALS: BP 145/65; PULSE 74; RESP 17; O2SAT 100
== END 2016-11-26 09:29 ==
LOC: NEPA 20:37 → NEPJ 11-26 09:29
DX: F31.9 Bipolar disorder, unspecified (principal); Z72.0 Tobacco use
CPT/HCPCS: 80053; 80164; 80307; 80320; 85025; 99284